=== PATIENT | male | born 1985 | race Caucasian/White ===

== ENCOUNTER → 2017-04-10 | Outpatient (CLI) | payer BC ==
[~2017-04-10] MED LIST: AMOX875T PO; HYDR-5688 PO; TAMS0.4C38 PO
[2017-04-10 11:14] LABS: URINE APPEARANCE CLEAR (CLEAR); URINE BILIRUBIN NEG (NEG); URINE COLOR YELLOW; URINE NITRITE NEG (NEG); URINE PH 6.5 (4.5-7.5); URINE SPECIFIC GRAVITY 1.021 (1.000-1.030); UROBILINOGEN NEG (NEG)
[2017-04-10 11:15] LABS: CARBON DIOXIDE 31 mmol/L (21-32)
[2017-04-10 11:18] LABS: MANUAL MICROSCOPIC REQUIRED? NO; REVIEW REQ? NO
[2017-04-10 11:20] LABS: ALT/SGPT 23 U/L (12-78); BLOOD UREA NITROGEN 16 mg/dl (7-18); BUN/CREATININE RATIO 17.8 (10-20); CALCIUM 9.3 mg/dl (8.5-10.1); CHLORIDE 105 mmol/L (98-107); CHOLESTEROL 202 mg/dl (0-200); CREATININE 0.89 mg/dl (0.60-1.40); GLUCOSE 90 mg/dl (70-99); POTASSIUM 3.8 mmol/L (3.5-5.1); SODIUM 139 mmol/L (136-145); TRIGLYCERIDES 78 mg/dl (0-150); VERY LOW DENSITY LIPOPROT CALC 16 mg/dl
[2017-04-10 11:24] LABS: ALB/GLOB RATIO 1.1 (0.9-2); ALKALINE PHOSPHATASE 50 U/L (45-117); AST/SGOT 17 U/L (15-37); CHOLESTEROL/HDL RATIO 3.5; HDL CHOLESTEROL 57 mg/dl; LDL CHOLESTEROL CALCULATED 129 mg/dl; PROSTATE SPECIFIC ANTIGEN 0.141 ng/ml (0.000-4.000)
[2017-04-10 11:26] LABS: ESTIMATED AVERAGE GLUCOSE 111 mg/dl; HA1C FLAG Normal (Normal)
== END | disposition home or self-care (01) ==
LOC: C.LABBC 08:27
PROVIDERS: ATTEND Internal Medicine
DX: Z00.00 Encounter for general adult medical examination without abnormal findings (principal); R35.0 Frequency of micturition

== ENCOUNTER 2017-05-21 18:20 | Emergency (ER) | payer BC ==
[~2017-05-21] VITALS: Ht 172.7 cm; Wt 70.7 kg
[2017-05-21 18:25] VITALS: TEMP 36.6; Ht 172.7 cm; Wt 70.7 kg
[2017-05-21] MEDS ORDERED: XYLOCAINE 1%/SOD BICARB 20 ML VIAL INFIL ONE (19:45)
[2017-05-21] MEDS ORDERED: DIPHTHERIA/TETANUS/PERTUSSIS 0.5 ML SYR/VIAL IM. ONE (19:45)
--- NOTE | 2017-05-21 20:05 | DIAGNOSTIC IMAGING REPORT ---
LEFT HAND MIN 3 VIEWS ROUTINE CLINICAL HISTORY: Dog bite to little finger COMPARISON: None FINDINGS: There is a lucency within the medial base of the distal phalanx of the left fifth finger which could reflect an acute nondisplaced fracture. There is suspected soft tissue gas within the left fifth finger. No additional fractures are identified. Carpal bones are intact. IMPRESSION: 1. Suspected nondisplaced acute fracture within the medial base of the distal phalanx of left fifth finger. 2. Probable soft tissue gas with the left fifth finger suggestive of puncture wound. Electronically signed by: Rosalino Gonzales M.D. 05/21/2017 8:04 PM Dictated Date/Time: 05/21/2017 8:00 PM
[2017-05-21] MEDS ORDERED: CEFAZOLIN IV 1,000 MG in DEXTROSE 5% 50ML 50 ML IV ONE (20:15)
[2017-05-21] MEDS ORDERED: TAMS0.4C38 PO (20:18)
[2017-05-21] MEDS ORDERED: NORCO 5/325MG HOME PACK PO ONE (22:15)
[2017-05-21] MEDS ORDERED: AMOXICIL/CLAVU 875MG HOME PACK PO ONE (22:15)
[2017-05-21] MEDS ORDERED: AMOX875T PO (22:18)
[2017-05-21] MEDS ORDERED: HYDR-5688 PO (22:18)
[2017-05-21 22:33] VITALS: BP 112/66; PULSE 65; O2SAT 97
--- NOTE | 2017-05-22 01:43 | EMERGENCY ROOM VISIT NOTE ---
ED Visit Note First contact with patient: 19:34 Chief Complaint: My dog bit my left little finger. History of Present Illness: Mr. Brito is a 31-year-old white male who ambulates into the ED complaining of a dog bite to the left little finger. Patient reports approximate 45 minutes before he arrived in the emergency department he was attempting to take a toy out of his dog's mouth and his dog bit his left finger over the fingernail and distal phalanxes. He reports since that time he has been having pain in the area of the dog bite. He did not wash the wound or control bleeding prior to arrival at the hospital. Currently patient is complaining of a throbbing pain over the distal phalanxes of the left little finger. He rates his discomfort 3/10. The pain is nonradiating. The pain worsens with palpation. He has not identified any alleviating factors related to the pain. He has not taken any medications for pain prior to arrival at the hospital. He denies any associated symptoms with his pain. He does report his family dog's immunizations are up-to-date. Review of Systems: As noted above in history of present illness. Past Medical History: Patient denies. Current Medications: Flomax. Allergies to Medications: Patient denies. Social History: Patient is currently employed; he lives with his family and feels safe in his home environment; he denies tobacco use. Tetanus Immunization Status: Patient was unsure but felt it was greater than 10 years. Physical Examination: Vital Signs: Date Time Temp Pulse Resp B/P (MAP) Pulse Ox O2 Delivery O2 Flow Rate FiO2 05/21/17 22:33 65 18 112/66 97 05/21/17 18:25 36.6 76 18 126/65 98 Room Air GENERAL: 31-year-old female in mild distress due to pain, nontoxic-appearing, afebrile and hemodynamically stable. NEUROLOGICAL: Awake, alert and oriented to person, place and time. Answering questions appropriately and following commands. SKIN: Warm, dry and pink. LEFT LITTLE FINGER: No gross bony deformity. Tenderness over the DIP and distal phalanx. No bony deformity or crepitus. No swelling in this area. Subcentimeter laceration extending from the the lateral nail fold anteriorly with active bleeding. Small, scant subungual hematoma just superior to the lunula. Additional the lateral proximal nail was sitting up above the cuticle. I did not appreciate any damage to the nail bed. The lateral portion of the nail showed a small splintering of the nail. Full range of motion in flexion and extension of the DIP joint. Capillary refill is brisk. He was able to distinguish light sensations. ED Course: Patient is assessed as noted above. Patient's medication list was reviewed. Patient was offered pain medications and refused. Left Hand X-Rays: Were read by myself and the radiologist and shows a suspected nondisplaced acute fracture within the medial base of the distal phalanx of the little finger. Radiologist also notes probable soft tissue gas within the left little finger suggested of a puncture wound. Wound Repair: Complexity: Basic: Verbal consent was obtained after the risks and benefits were explained. A digital block was performed with 1% buffer lidocaine; approximately 3.8 mL The skin was prepped with betadine and a sterile field set. The wound was explored for foreign bodies and none found. Copious irrigation was performed using sterile saline. Using the iris scissors I was able to cut a small piece of the proximal nail off from where was extruded above the cuticle and I was then able to replace the nail under the cuticle. The wound edges were approximated using tarry strips. Hemostasis and excellent approximation was achieved. Patient's finger was then placed in a metal finger splint. No complications and the patient tolerated the procedure well. Patient received an Adacel booster. An IV lock was initiated ankle because of the potential for a possible open fracture patient received 1 g of Ancef IV. Patient was educated about tonight's findings and instructed on his treatment plan; he verbalizes understanding and agreement with this plan. Clinical Impression: Open fracture of the distal phalanx of the left little finger. Dog bite injury. Fingernail injury. Disposition: Patient discharged home in stable condition; prior to departure he was reassessed and subjectively reported he was pain-free. Plan: Comfort measures, wound care, and signs of infection were discussed with the patient. Patient was prescribed Augmentin 875 mg 2 times a day for 10 days from biotic prophylaxis. Patient was placed on a sliding pain scale of ibuprofen, acetaminophen and [place] ; he was given appropriate precautions with narcotic use and his name was checked on state database and no red flags were noted. Patient was encouraged to follow-up with orthopedic hand specialist for definitive care and treatment. Patient was encouraged return ED for worsening/uncontrolled pain, signs of infection, finger weakness/numbness/tingling or any new/concerning symptoms.
== END 2017-05-21 22:34 | disposition home or self-care (01) ==
LOC: C.EDB 18:23 → C.EDD 22:34
DX: S62.667B Nondisplaced fracture of distal phalanx of left little finger, initial encounter for open fracture (principal); S61.357A Open bite of left little finger with damage to nail, initial encounter; W54.0XXA Bitten by dog, initial encounter; Z79.899 Other long term (current) drug therapy; Z23 Encounter for immunization

== ENCOUNTER → 2017-05-27 | Outpatient (CLI) | payer BC | END | disposition home or self-care (01) | LOC: C.LABSPEC 10:33 | PROVIDERS: ATTEND Nurse Practitioner Family | DX: R39.12 Poor urinary stream (principal) ==

== ENCOUNTER → 2017-07-07 | Outpatient (CLI) | payer BC ==
[~2017-07-07] MED LIST changes: -AMOX875T PO
== END | disposition home or self-care (01) ==
LOC: C.LABSPEC 17:23
PROVIDERS: ATTEND Nurse Practitioner Adult Health
DX: R35.0 Frequency of micturition (principal)

== ENCOUNTER → 2017-07-19 | Outpatient (CLI) | payer BC ==
[~2017-07-19] MED LIST changes: +GADAVIST IV PRN
--- NOTE | 2017-07-19 10:48 | DIAGNOSTIC IMAGING REPORT ---
MRI OF THE LUMBAR SPINE WITH AND WITHOUT CONTRAST CLINICAL HISTORY: Urinary retention. Conus medullaris syndrome. COMPARISON STUDY: No previous studies for comparison. TECHNIQUE: Utilizing a 1.5 Victorina magnet and dedicated coil, multiplanar, multiecho imaging of the lumbar spine was performed before and after uneventful IV administration of 6 mL of Gadavist. FINDINGS: For purposes of numbering on this exam, the L5-S1 disc space is assigned to axial image 23 of 25. Alignment of the lumbar spine is anatomic. Vertebral body heights are maintained. Conus terminates at the mid L1 level. There is no intracanalicular mass or fluid collection. The urinary bladder is moderately distended. Bladder wall irregularity may reflect trabeculation. Paravertebral soft tissues are unremarkable. L1-2: The central canal and neural foramen are patent. L2-3: The central canal and neural foramen are patent. L3-4: The central canal and neural from are patent. L4-5: The central canal and neural foramen are patent. L5-S1: There is mild disc bulge tiny central disc protrusion. There is no significant central canal, lateral recess or neural foraminal narrowing. IMPRESSION: 1. No significant central canal or neural foraminal narrowing. 2. Mild disc bulge with tiny central disc protrusion at L5-S1. Otherwise, normal MRI of the lumbar spine. 3. Moderately distended bladder with bladder wall irregularity which suggests trabeculation. Electronically signed by: Rosalino Gonzales M.D. 07/19/2017 10:46 AM Dictated Date/Time: 07/19/2017 10:40 AM
--- NOTE | 2017-07-19 11:02 | DIAGNOSTIC IMAGING REPORT ---
MRI OF THE THORACIC SPINE COMBO CLINICAL HISTORY: Urinary retention. Conus medullaris syndrome. COMPARISON STUDY: No priors. TECHNIQUE: MRI of the thoracic spine is performed utilizing various T1 and T2-weighted sequences in the axial and sagittal planes. Contrast-enhanced sequences were acquired following the IV administration of 6 cc of Gadavist. FINDINGS: Vertebral body height and alignment are maintained throughout the thoracic spine. Normal marrow signal intensity is preserved of the visualized bony structures. Tiny hemangiomas are seen in the bodies of T10 and T11. No destructive bony lesion is seen. The spinous processes appear intact. The intervertebral discs are normal in height and signal intensity. No disc herniation or central canal compromise is seen. No significant neural foraminal stenosis is seen. The spinal cord is normal in morphology and signal intensity. No abnormal enhancement is seen on the postcontrast images. The conus medullaris terminates at the level of L1. The paraspinous soft tissues are normal in appearance. The visualized lung parenchyma is grossly unremarkable but not well evaluated by MRI. IMPRESSION: 1. There is no disc herniation, central canal stenosis, or neural foraminal narrowing seen throughout the thoracic spine. 2. The thoracic spinal cord is normal in morphology and signal intensity. No abnormal enhancement is seen on the postcontrast images. Dictated: 07/19/2017 10:35 AM Transcribed: 07/19/2017 11:02 AM Shl[facility] Electronically signed by: Shola Barrett M.D. 07/19/2017 11:11 AM Dictated Date/Time: 07/19/2017 10:35 AM
== END | disposition home or self-care (01) ==
LOC: C.MRIBC 07:46
PROVIDERS: ATTEND Psychiatry & Neurology Neurology
DX: G95.81 Conus medullaris syndrome (principal); R33.9 Retention of urine, unspecified; R93.41 Abnormal radiologic findings on diagnostic imaging of renal pelvis, ureter, or bladder

== ENCOUNTER → 2017-10-01 | Outpatient (CLI) | payer BC ==
[~2017-10-01] MED LIST changes: -GADAVIST IV PRN
== END | disposition home or self-care (01) ==
LOC: C.LABBC 12:59
PROVIDERS: ATTEND Nurse Practitioner Adult Health
DX: N39.0 Urinary tract infection, site not specified (principal)

== ENCOUNTER → 2017-12-14 | Outpatient (CLI) | payer OTHER ==
[~2017-12-14] MED LIST changes: -HYDR-5688 PO
== END | disposition home or self-care (01) ==
LOC: C.LABBC 12:25
PROVIDERS: ATTEND Urology
DX: N39.0 Urinary tract infection, site not specified (principal)

== ENCOUNTER → 2018-04-27 | Outpatient (CLI) | payer OTHER | END | disposition home or self-care (01) | LOC: C.LAB1850 15:41 | PROVIDERS: ATTEND Internal Medicine | DX: N39.0 Urinary tract infection, site not specified (principal) ==

== ENCOUNTER → 2018-04-29 | Outpatient (CLI) | payer OTHER ==
[2018-04-29 13:33] LABS: BASO % 0.6 %; BASO ABS # 0.03 K/uL (0-0.2); EOS % 1.2 %; EOS ABS # 0.06 K/uL (0-0.5); HEMATOCRIT 43.5 % (42-52); HEMOGLOBIN 15.2 g/dL (14.0-18.0); LYMPH % 40.4 %; MEAN CELL VOLUME 89.5 fL (80-100); MEAN CORPUSCULAR HEMOGLOBIN 31.3 pg (25-34); MEAN CORPUSCULAR HGB CONC 34.9 g/dl (32-36); MEAN PLATELET VOLUME 10.3 fL (7.4-10.4); MONO % 12.3 %; MONO ABS # 0.61 K/uL (0.11-0.59); NEUT % 45.5 %; NEUT ABS # 2.25 K/uL (1.4-6.5); PLATELET COUNT 259 K/uL (130-400); RED CELL DISTRIBUTION WIDTH CV 12.3 % (11.5-14.5); RED CELL DISTRIBUTION WIDTH SD 40.1 fL (36.4-46.3); WHITE BLOOD COUNT 4.95 K/uL (4.8-10.8)
[2018-04-29 13:39] LABS: PTT PATIENT 30.3 SECONDS (21.0-31.0)
[2018-04-29 13:55] LABS: ALKALINE PHOSPHATASE 59 U/L (45-117); ALT/SGPT 20 U/L (12-78); AST/SGOT 16 U/L (15-37); BLOOD UREA NITROGEN 19 mg/dl (7-18); CALCIUM 8.6 mg/dl (8.5-10.1); CARBON DIOXIDE 28 mmol/L (21-32); CREATININE 1.04 mg/dl (0.60-1.40); GLUCOSE 83 mg/dl (70-99); SODIUM 139 mmol/L (136-145); TOTAL PROTEIN 7.6 gm/dl (6.4-8.2)
== END | disposition home or self-care (01) ==
LOC: C.LABBC 09:40
PROVIDERS: ATTEND Urology
DX: R33.9 Retention of urine, unspecified (principal)

== ENCOUNTER 2022-07-09 09:53 | Inpatient (IN) ==
[2022-07-09] MEDS ORDERED: SODIUM CHLORIDE 0.9% 1000ML 1,000 ML IV ONE (11:11)
[2022-07-09] MEDS ORDERED: diphenhydrAMINE 50 MG/ML VIAL IV STA (11:11)
[2022-07-09] MEDS ORDERED: METOCLOPRAMIDE HCL INJ 5 MG/ML 2 ML VIAL IV ONE (11:11)
--- NOTE | 2022-07-09 11:33 | Emergency Department Note ---
History of Present Illness General Chief Complaint: Headache Stated Complaint: SENT BY - SEVERE HEADACHES Time Seen by Provider: 07/09/22 11:00 History of Present Illness Provider complaint: + "migraine" Onset (ago): day(s) (12) Onset description: + gradual and + at rest Location: + diffuse Severity: moderate Maximum Pain Intensity: 7 Current Pain Intensity: 7 Quality: + throbbing and + dull Relieved By: + other (transiently better with cortez cocktails in ED) Exacerbated By: + none Context: + occurred at rest; no occurred while eating, no recent head injury, no known CO exposure or no recent spinal/epidural procedure Associated symptoms: no fever, no nausea, no vomiting, no neck stiffness, no photophobia, no sensitivity to sound, no rash, no seizure, no eye pain, no eye redness, no syncope, no vision loss, no tingling, no numbness, no confusion, no chest pain, no cough or no shortness of breath Home Medications Medication Instructions Recorded Confirmed Type prednisone 20 mg tablet 20 mg PO DIRECTED 06/28/22 07/09/22 History jipbfljyxz-qhfioafqtxvrx-[id number] 1 cap PO Q6H PRN pain #30 caps 07/02/22 07/09/22 Rx 50 mg-300 mg-40 mg capsule (Fioricet) cyclobenzaprine 10 mg tablet 10 mg PO HS 07/02/22 07/09/22 History diclofenac sodium 75 mg 75 mg PO BID 07/02/22 07/09/22 History tablet,delayed release guaifenesin 1,200 mg tablet, 1,200 mg PO BID 07/02/22 07/09/22 History extended release 12 hr (Mucinex) Allergies Allergy/AdvReac Type Severity Reaction Status Date / Time No Known Allergies Allergy Unverified 07/09/22 08:57 Past Med/Surg History Medical History Migraine headache Urinary retention Surgical History History of implanted electronic device URINARY DEVICE DUE TO URINARY RETENTION/WAS REMOVED DUE TO NOT HELPING THE ISSUE Family History Mother Breast cancer Hypertension Cataracts, bilateral Father Hypertension Urinary retention Social History Smoking Status: Never smoker Second Hand Exposure: No; Hx Alcohol Use: Yes Alcohol type: beer, wine and hard liquor Alcohol Intake Frequency: 4 or More x per/Week Hx Substance Use: No Preferred Language: Uzbek Communication Ability: Effective Visual Impairment: Limited Hearing Ability: Normal Hand Cigar Maker Required: No marital status: Current Living Situation: Spouse current occupational status: employed Feels Safe at Home: Yes Childhood Exposure to Second-Hand Smoke: No caffeine: Yes Dental Care, Regularly: Yes Physical Activity Frequency: Does not Exercise Seatbelt Use: always Sunscreen Use: Yes Do you think of yourself as: straight/heterosexual Review of Systems A total of 10 systems reviewed and were otherwise negative Physical Exam Vital Signs Vital Signs - 24 hr 07/09/22 10:27 07/09/22 11:44 07/09/22 17:00 Temperature 36.8 C Temperature Source Temporal Artery Scan Pulse Rate 107 H Pulse Rate [Finger] 91 H 84 Pulse Rhythm [Finger] Regular Respiratory Rate 18 20 18 Respiratory Effort / Characteristics Non-Labored Spontaneous Non-Labored Respiratory Depth Normal Normal Normal Respiratory Pattern Regular Blood Pressure 116/80 Blood Pressure [Right Arm] 105/66 118/64 Blood Pressure Mean 92 Blood Pressure Mean [Right Arm] 79 82 Pulse Oximetry 98 99 98 Oxygen Delivery Method Room Air Sepsis Recent Fever Within 48 Hours No Sepsis New/Unexplained Change in Mental Status N/A Sepsis Action Taken by Nursing No Action Required Physical Exam GENERAL: He is oriented to person, place, and time. He appears well-developed and well-nourished. He does not appear distressed. HENT: Exam performed. - Head: Normocephalic and atraumatic. - Right Ear: External ear normal. No mastoid tenderness. - Left Ear: External ear normal. No mastoid tenderness. - Mouth/Throat: The oropharynx is clear and moist. No trismus in the jaw. No dental abscesses or uvula swelling. No oropharyngeal exudate or tonsillar abscesses. EYES: Conjunctivae and EOM are normal. Pupils are equal, round, and reactive to light. Right eye exhibits no discharge. Left eye exhibits no discharge. No scleral icterus. NECK: Normal range of motion. Neck supple. No JVD present. No spinous process tenderness present. No carotid bruit present. No rigidity. No tracheal deviation and normal range of motion present. No Brudzinski's sign and no Kernig's sign noted. CV: Normal rate, regular rhythm, normal heart sounds and intact distal pulses. There is no peripheral edema. Palpable radial pulses bue. PULM/CHEST: Effort normal and breath sounds normal. No respiratory distress. No stridor. He has no wheezes. He has no rales. - Chest Wall: He exhibits no tenderness. ABD: The abdomen is soft. Bowel sounds are normal. He has no distension. No mass is present. There is no tenderness. There is no rebound, no guarding, no Blair's sign and no tenderness at McBurney's point. Rovsig negative. MUSC/SKEL: Normal range of motion. There is no peripheral edema, tenderness or deformity. LYMPH: No cervical adenopathy. NEURO: He is alert and oriented to person, place, and time. He has normal strength. No cranial nerve deficit or sensory deficit. Coordination and gait normal. GCS eye subscore is 4. GCS verbal subscore is 5. GCS motor subscore is 6. Cerebellar tests wnl. SKIN: Skin is warm and dry. He is not diaphoretic. PSYCH: He has a normal mood and affect. Behavior is normal. Judgment and thought content normal. Procedures Lumbar Puncture Time Out Performed: Yes Patient Position: left lateral decubitus Skin Prep: Povidone-Iodine 1% Local Anesthetic: lidocaine 1% and with epi Amount of anesthesia used (mL): 5 Spinal Needle Gauge: 20G Interspace Used: L3-L4 Complications: unable to obtain CSF and traumatic tap Additional Comments: 2-3 small drops of CSF were obtained however they came out very slow and eventually stopped coming out. Multiple other attempts were made however they were unsuccessful. Course Course 1100: The patient was evaluated in room C7. A complete history and physical exam was performed Cardiac monitoring: An order was placed for continuous cardiac monitoring. The monitor shows a rate of 100 with sinus rhythm EMR reviewed. This patient's third visit to the emergency department in the last 11 days.Patient had blood work done on July 02 which was negative. Lyme screen negative on that date also. Patient had a CT of the head done which was negative.Patient was seen in the emergency department today by Dr. Jacinto neurology. He was referred to the emergency department today. The patient states he was sent here for an MRI from his "head to toe". I stated I would speak with Dr. Jacinto about this prior to ordering any MRIs. 1112: Spoke with Dr. Jacinto neurologist who referred the patient to the emergency department. He states that the patient has been having headaches for the last 12 days which are unexplained. He did state that he wanted to get MRIs of his head and thoracic and lumbar spine. He stated he was concerned that the patient could have a low pressure CSF leak. There is been no LP or recent trauma. We had a long discussion about which MRIs should be done emergently in the emergency department today. After long discussion with Dr. Jacinto, it was decided that we would order MRI of the brain with and without contrast, MRA of the brain, MRV of the brain in the emergency department as well as conduct labs. If these MRIs of the head were negative we would have the patient admitted to the hospital for further diagnostic MRI testing. Dr. Jacinto is also asking that the patient be evaluated by anesthesia for possible blood patch however given that the patient has not had any recent LP I doubt that anesthesia would conduct a blood patch on the patient emergently and thought that this would be better done on the inpatient setting after evaluation and further testing. The primary goal today in the emergency department would be to rule out any life-threatening intracranial emergency. I did discuss this with the patient and his who are at bedside and they are in agreement. 1554: Vital signs stable. Labs within normal limits. 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 Nonemergent neurosurgical consultation was recommended. MRI of the brain showed mild diffuse pachymeningeal enhancement seen throughout the brain. This can be seen in the setting of an infectious/inflammatory process or possibly intracranial hypotension. I discussed these findings with Dr. Jacinto and both he and I agree that we need to rule out meningitis. LP will be performed. I attempted lumbar puncture. 2-3 small drops of CSF were obtained however they came out very slow and eventually stopped coming out. Multiple other attempts were made however they were unsuccessful. I discussed the case with Dr. Gonzales radiology and requested that he attempt to do the procedure under fluoroscopy. Dr. Gonzales graciously said he would try to do the procedure. There is also concern that if the patient truly has intracranial hypotension that that could be the reason why not enough CSF was coming out. 190: Vital signs stable. CSF is not concerning for meningitis as the patient's CSF bio fire was negative glucose was 54. The lumbar puncture was a traumatic tap given multiple attempts by me followed by attempts by radiology under fluoroscopy. We will proceed with the plan to obtain MRIs of his spine Dr. Penaloza is aware of this plan and states he will keep neurology on consult while the patient is admitted to the hospital. Administered Medications Discontinued Medications Diphenhydramine HCl (Diphenhydramine 50 Mg/Ml Vial) 25 mg IV NOW STA Stop: 07/09/22 11:12 Last Admin: 07/09/22 11:28 Dose: 25 mg Documented By: MARTIN Gadobutrol (Gadobutrol 65ml Vial) 6 ml IV ONCE ONE Stop: 07/09/22 13:29 Last Admin: 07/09/22 13:28 Dose: 6 ml Documented By: CRISS Sodium Chloride (Nss 1000ml) 1,000 mls @ 999 mls/hr IV .Q1H1M ONE Stop: 07/09/22 12:11 Last Infusion: 07/09/22 13:53 Dose: 0 mls/hr Documented By: Admin: 07/09/22 11:26 Dose: 999 mls/hr Documented By: MARTIN Lidocaine/Epinephrine (Lido/Epinephrine/Sod Bicarb 20 Ml Vial) 20 ml INFIL NOW ONE Stop: 07/09/22 15:00 Last Admin: 07/09/22 15: Dose: 20 ml Documented By: MARTIN Lorazepam (Lorazepam 2 Mg/2 Ml Syr) 1 mg IV NOW STA; Protocol Stop: 07/09/22 15:00 Last Admin: 07/09/22 15:27 Dose: 1 mg Documented By: MARTIN Metoclopramide HCl (Metoclopramide Hcl Inj 5 Mg/Ml 2 Ml Vial) 5 mg IV ONE ONE Stop: 07/09/22 11:12 Last Admin: 07/09/22 11:29 Dose: 5 mg Documented By: MARTIN Morphine Sulfate (Morphine Sulfate 4 Mg/Ml 1 Ml Carp\\Vial) 4 mg IV NOW STA Stop: 07/09/22 15:00 Last Admin: 07/09/22 15:28 Dose: 4 mg Documented By: MARTIN Ondansetron HCl (Ondansetron Inj 2 Mg/Ml 2 Ml Vial) 4 mg IV NOW STA Stop: 07/09/22 15:00 Last Admin: 07/09/22 15:28 Dose: 4 mg Documented By: MARTIN Medical Decision Making Laboratory Data Result diagrams: 07/09/22 11:34 07/09/22 11:34 Lab Results 07/09/22 07/09/22 07/09/22 Range/Units 11:34 11:34 11:34 WBC 10.47 (4.8-10.8) K/ul RBC 5.37 (4.63-6.08) M/uL Hgb 16.8 (14.0-18.0) g/dl Hct 47.7 (40.1-51.0) % MCV 88.8 (80.0-100.0) fL MCH 31.3 (25.0-34.0) pg MCHC 35.2 (32.0-36.0) g/dL RDW Std Deviation 38.3 (36.4-46.3) fL RDW Coeff of Aurelia 11.9 (11.5-14.5) % Plt Count 261 (130-400) K/uL MPV 9.9 (9.4-12.4) fL Immature Gran % (Auto) 0.3 % Neut % (Auto) 84.0 % Lymph % (Auto) 10.0 % Chambers % (Auto) 5.3 % Eos % (Auto) 0.0 % Baso % (Auto) 0.4 % Neut # (Auto) 8.80 H (1.4-6.5) K/uL Lymph # (Auto) 1.05 L (1.2-3.4) K/uL Chambers # (Auto) 0.55 (0.24-0.82) K/uL Eos # (Auto) 0.00 (0-0.50) K/uL Baso # (Auto) 0.04 (0-0.2) K/uL Immature Gran # (Auto) 0.03 H (0.00-0.02) K/uL PT 11.9 (9.0-12.0) Seconds INR 1.1 (0.9-1.1) APTT 28.4 (21.0-31.0) Seconds PTT Ratio 1.0 Sodium 136 (136-145) mmol/L Potassium 4.3 (3.5-5.1) mmol/L Chloride 99 (98-107) mmol/L Carbon Dioxide 24 (21-32) mmol/L Anion Gap 13 H (3-11) BUN 23 (6-23) mg/dl Creatinine 0.93 (0.6-1.4) mg/dl Est Cr Clr Drug Dosing 93.7 ml/min Est GFR ( Amer) 119.4 ml/min Est GFR (Non-Af Amer) 103.0 ml/min BUN/Creatinine Ratio 24.7 H (10-20) Glucose 86 (70-99(Fasting)) mg/dl Calcium 10.2 H (8.5-10.1) mg/dl Total Bilirubin 0.8 (0.2-1.0) mg/dl AST 11 L (13-39) U/L ALT 11 (7-52) U/L Alkaline Phosphatase 54 (34-104) U/L Total Protein 8.5 H (6.0-8.3) gm/dl Albumin 4.9 (3.4-5.0) gm/dl Globulin 3.6 (2.5-4.0) gm/dl Albumin/Globulin Ratio 1.4 (0.9-2) Fluid Comment CSF Appearance CSF Color Xanthrochromic CSF WBC (0-5) /uL CSF RBC (0-) /uL CSF Cell Count Tube # CSF Mononuclear WBCs % % CSF Polynuclear WBCs % % CSF Chemistry Tube # CSF Glucose (40-70) mg/dl CSF Total Protein (15-45) mg/dl CSF C.neoform/gat PCR (NotDetected) CSF CMV DNA (PCR) (NotDetected) CSF Enterovirus (PCR) (NotDetected) CSF E. coli K1 (PCR) (NotDetected) CSF H. influenzae (PCR) (NotDetected) CSF HSV I (PCR) (NotDetected) CSF HSV II (PCR) (NotDetected) CSF HHV 6 (PCR) (NotDetected) CSF L.monocytogenes PCR (NotDetected) CSF N. meningitidis PCR (NotDetected) CSF Parechovirus (PCR) (NotDetected) CSF S. agalactiae (PCR) (NotDetected) CSF S. pneumoniae (PCR) (NotDetected) CSF VZV DNA (PCR) (NotDetected) SARS-CoV-2, RNA, NAAT (NEGATIVE) 09/29/22 09/29/22 09/29/22 Range/Units 17:00 17:00 17:00 WBC (4.8-10.8) K/ul RBC (4.63-6.08) M/uL Hgb (14.0-18.0) g/dl Hct (40.1-51.0) % MCV (80.0-100.0) fL MCH (25.0-34.0) pg MCHC (32.0-36.0) g/dL RDW Std Deviation (36.4-46.3) fL RDW Coeff of Aurelia (11.5-14.5) % Plt Count (130-400) K/uL MPV (9.4-12.4) fL Immature Gran % (Auto) % Neut % (Auto) % Lymph % (Auto) % Chambers % (Auto) % Eos % (Auto) % Baso % (Auto) % Neut # (Auto) (1.4-6.5) K/uL Lymph # (Auto) (1.2-3.4) K/uL Chambers # (Auto) (0.24-0.82) K/uL Eos # (Auto) (0-0.50) K/uL Baso # (Auto) (0-0.2) K/uL Immature Gran # (Auto) (0.00-0.02) K/uL PT (9.0-12.0) Seconds INR (0.9-1.1) APTT (21.0-31.0) Seconds PTT Ratio Sodium (136-145) mmol/L Potassium (3.5-5.1) mmol/L Chloride (98-107) mmol/L Carbon Dioxide (21-32) mmol/L Anion Gap (3-11) BUN (6-23) mg/dl Creatinine (0.6-1.4) mg/dl Est Cr Clr Drug Dosing ml/min Est GFR ( Amer) ml/min Est GFR (Non-Af Amer) ml/min BUN/Creatinine Ratio (10-20) Glucose (70-99(Fasting)) mg/dl Calcium (8.5-10.1) mg/dl Total Bilirubin (0.2-1.0) mg/dl AST (13-39) U/L ALT (7-52) U/L Alkaline Phosphatase (34-104) U/L Total Protein (6.0-8.3) gm/dl Albumin (3.4-5.0) gm/dl Globulin (2.5-4.0) gm/dl Albumin/Globulin Ratio (0.9-2) Fluid Comment CSF Appearance Bloody CSF Color [place] Xanthrochromic No xanthochromia CSF WBC 16 H* (0-5) /uL CSF RBC 6000 (0-) /uL CSF Cell Count Tube # 3 CSF Mononuclear WBCs % 87.6 % CSF Polynuclear WBCs % 12.4 % CSF Chemistry Tube # 1 CSF Glucose 54 (40-70) mg/dl CSF Total Protein 127.6 H (15-45) mg/dl CSF C.neoform/gat PCR Not Detected (NotDetected) CSF CMV DNA (PCR) Not Detected (NotDetected) CSF Enterovirus (PCR) Not Detected (NotDetected) CSF E. coli K1 (PCR) Not Detected (NotDetected) CSF H. influenzae (PCR) Not Detected (NotDetected) CSF HSV I (PCR) Not Detected (NotDetected) CSF HSV II (PCR) Not Detected (NotDetected) CSF HHV 6 (PCR) Not Detected (NotDetected) CSF L.monocytogenes PCR Not Detected (NotDetected) CSF N. meningitidis PCR Not Detected (NotDetected) CSF Parechovirus (PCR) Not Detected (NotDetected) CSF S. agalactiae (PCR) Not Detected (NotDetected) CSF S. pneumoniae (PCR) Not Detected (NotDetected) CSF VZV DNA (PCR) Not Detected (NotDetected) SARS-CoV-2, RNA, NAAT (NEGATIVE) 07/09/22 Range/Units 18:46 WBC (4.8-10.8) K/ul RBC (4.63-6.08) M/uL Hgb (14.0-18.0) g/dl Hct (40.1-51.0) % MCV (80.0-100.0) fL MCH (25.0-34.0) pg MCHC (32.0-36.0) g/dL RDW Std Deviation (36.4-46.3) fL RDW Coeff of Aurelia (11.5-14.5) % Plt Count (130-400) K/uL MPV (9.4-12.4) fL Immature Gran % (Auto) % Neut % (Auto) % Lymph % (Auto) % Chambers % (Auto) % Eos % (Auto) % Baso % (Auto) % Neut # (Auto) (1.4-6.5) K/uL Lymph # (Auto) (1.2-3.4) K/uL Chambers # (Auto) (0.24-0.82) K/uL Eos # (Auto) (0-0.50) K/uL Baso # (Auto) (0-0.2) K/uL Immature Gran # (Auto) (0.00-0.02) K/uL PT (9.0-12.0) Seconds INR (0.9-1.1) APTT (21.0-31.0) Seconds PTT Ratio Sodium (136-145) mmol/L Potassium (3.5-5.1) mmol/L Chloride (98-107) mmol/L Carbon Dioxide (21-32) mmol/L Anion Gap (3-11) BUN (6-23) mg/dl Creatinine (0.6-1.4) mg/dl Est Cr Clr Drug Dosing ml/min Est GFR ( Amer) ml/min Est GFR (Non-Af Amer) ml/min BUN/Creatinine Ratio (10-20) Glucose (70-99(Fasting)) mg/dl Calcium (8.5-10.1) mg/dl Total Bilirubin (0.2-1.0) mg/dl AST (13-39) U/L ALT (7-52) U/L Alkaline Phosphatase (34-104) U/L Total Protein (6.0-8.3) gm/dl Albumin (3.4-5.0) gm/dl Globulin (2.5-4.0) gm/dl Albumin/Globulin Ratio (0.9-2) Fluid Comment CSF Appearance CSF Color Xanthrochromic CSF WBC (0-5) /uL CSF RBC (0-) /uL CSF Cell Count Tube # CSF Mononuclear WBCs % % CSF Polynuclear WBCs % % CSF Chemistry Tube # CSF Glucose (40-70) mg/dl CSF Total Protein (15-45) mg/dl CSF C.neoform/gat PCR (NotDetected) CSF CMV DNA (PCR) (NotDetected) CSF Enterovirus (PCR) (NotDetected) CSF E. coli K1 (PCR) (NotDetected) CSF H. influenzae (PCR) (NotDetected) CSF HSV I (PCR) (NotDetected) CSF HSV II (PCR) (NotDetected) CSF HHV 6 (PCR) (NotDetected) CSF L.monocytogenes PCR (NotDetected) CSF N. meningitidis PCR (NotDetected) CSF Parechovirus (PCR) (NotDetected) CSF S. agalactiae (PCR) (NotDetected) CSF S. pneumoniae (PCR) (NotDetected) CSF VZV DNA (PCR) (NotDetected) SARS-CoV-2, RNA, NAAT NEGATIVE (NEGATIVE) Imaging Data Radiologist's Impression: Brain MRI 07/09/22 11:16 Brain MRI WITH AND WITHOUT CONTRAST HISTORY: Headache. TECHNIQUE: Multiplanar multisequence MRI of the brain was performed both before and after the intravenous administration of contrast. COMPARISON STUDY: Brain MRI 08/10/2017. FINDINGS: There are no areas of restricted diffusion to suggest acute infarction. The midline structures are intact. The paranasal sinuses are clear. The mastoid air cells are clear. The ventricles and sulci are within normal limits for age. There is no mass, hematoma, midline shift. The major vascular flow-voids at the skull base are well maintained. No intracranial mass identif ied. There is mild diffuse pachymeningeal enhancement. There are 2 punctate foci of T2 hyperintensity seen within the paratracheal white matter of the left parietal lobe on coronal FLAIR image 18. These remain unchanged and are of doubtful clinical significance. IMPRESSION: 1. Mild diffuse pachymeningeal enhancement seen throughout the brain. This can be seen in the setting of an infectious/inflammatory process or possibly intracranial hypotension. 2. No acute infarct. ACT 112: Negative or not required by law. Electronically signed by: Pravene Joseph M.D. 07/09/2022 2:07 PM Head MRA 07/09/22 11:16 MRA OF THE INTRACRANIAL CIRCULATION WITHOUT CONTRAST CLINICAL HISTORY: Headache. COMPARISON STUDY: Head CT July 02, 2022. TECHNIQUE: Utilizing a 1.5 Victorina magnet and 3-D [id number] technique, unenhanced MRA of the intracranial circulation was obtained. FINDINGS: Note is made of a saccular 5 mm x 4 mm aneurysm which arises sup eriorly from the ophthalmic segment of the right internal carotid artery. This aneurysm is bilobed. No additional intracranial aneurysms are identified. 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 The bilateral M1, M2, A1 and A2 segment are patent. Posterior circulation is intact. There is no stenosis within the intracranial vessels. No dissection within the intracranial vessels is present. IMPRESSION: 1. 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 Nonemergent neurosurgical consultation is recommended. No additional intracranial aneurysms. 2. No central vessel occlusion. 3. Duplicated right A1 segment. ACT 112: Positive. There are findings on this exam that require communication between the performing entity and the patient following Patient Test Result Information Act ([place] Act 112) guidelines. Electronically signed by: Roslaino Gonzales M.D. 07/09/2022 1:30 PM Head/Brain Mag Res Venography 07/09/22 11:16 MR venography head wo con CLINICAL HISTORY: cortez referred by neuro . Cold days of headaches. No known injury or history of stroke TECHNIQUE: Multiplanar and multisequence MR images of the brain were obtained with MR venography protocol Comparison: Comparison is made to MRI brain 08/10/[address] brain 07/02/2022 FINDINGS: The white matter is unremarkable. The ventricular system is normal in appearance. There are no masses, mass effect, or midline shift. No abnormal enhancement is seen. The corpus callosum, pituitary gland, and cerebellar tonsils appear grossly unremarkable. Normal patency and flow is seen in the dural sinuses and visualized cerebral veins. The imaged portions of the paranasal sinuses, mastoid air cells, and or bits are unremarkable. IMPRESSION: No acute abnormalities, in particular no evidence of dural venous thrombus. ACT 112: Negative or not required by law. Electronically signed by: Oliver Cristobal M.D. 07/09/2022 1:29 PM KUB X-Ray 07/09/22 12:07 KUB CLINICAL HISTORY: MRI clearance. Assess for retained metallic leads in the abdomen. FINDINGS: An AP supine abdominal radiograph is obtained. No prior studies are available for comparison at the time of dictation. There is a nonobstructed abdominal bowel gas pattern. No evidence of intraperitoneal free air is seen on this supine image. There are no abnormal abdominal calcifications. There is no evidence of retained metallic foreign body. The bony structures appear intact. IMPRESSION: No retained metallic foreign body is identified. Electronically signed by: Shola Barrett M.D. 07/09/2022 12:35 PM Lumbar Puncture Fluoroscopy 07/09/22 15:51 FLUOROSCOPICALLY GUIDED LUMBAR PUNCTURE CLINICAL HISTORY: Headaches. Evaluate for meningitis. FLUOROSCOPY TIME: 0.3 minutes. NUMBER OF FLUOROSCOPIC IMAGES: 2 PROCEDURE: The procedure, risks and benefits were discussed with the patient including the risk of spinal headache, bleeding and infection. The patient agreed to the procedure and informed written consent was obtained. The procedure was performed by Dr. Gonzales following a timeout. The right L4-L5 interlaminar space was targeted. Skin overlying the space was prepped and draped in sterile fashion and local anesthesia was achieved with 1% lidocaine. Under intermittent fluoroscopic guidance, a 3 1/2 inch 22-gauge spinal needle was directed into the thecal sac. This immediately returned of cerebrospinal fluid. The CSF remained blood-tinged throughout the procedure. A total 8 cc of CSF was collected in 4 vials and sent to the laboratory for analysis as ordered. The needle was removed. The patient tolerated the procedure well and no immediate complications were evident. IMPRESSION: Successful fluoroscopically guided lumbar puncture with collection of 8 cc of blood-tinged CSF, as described above. Fluid sent to the laboratory for analysis as ordered. ACT 112: Negative or not required by law. Electronically signed by: Rosalino Gonzales M.D. 07/09/2022 5:48 PM [facility] Narrative 1100: The patient was evaluated in room C7. A complete history and physical exam was performed Cardiac monitoring: An order was placed for continuous cardiac monitoring. The monitor shows a rate of 100 with sinus rhythm EMR reviewed. This patient's third visit to the emergency department in the las t 11 days.Patient had blood work done on July 02 which was negative. Lyme screen negative on that date also. Patient had a CT of the head done which was negative.Patient was seen in the emergency department today by Dr. Jacinto neurology. He was referred to the emergency department today. The patient states he was sent here for an MRI from his "head to toe". I stated I would speak with Dr. Jacinto about this prior to ordering any MRIs. 1112: Spoke with Dr. Jacinto neurologist who referred the patient to the emergency department. He states that the patient has been having headaches for the last 12 days which are unexplained. He did state that he wanted to get MRIs of his head and thoracic and lumbar spine. He stated he was concerned that the patient could have a low pressure CSF leak. There is been no LP or recent trauma. We had a long discussion about which MRIs should be done emergently in the emergency department today. After long discussion with Dr. Jacinto, it was decided that we would order MRI of the brain with and without contrast, MRA of the brain, MRV of the brain in the emergency department as well as conduct labs. If these MRIs of the head were negative we would have the patient admitted to the hospital for further diagnostic MRI testing. Dr. Jacinto is also asking that the patient be evaluated by anesthesia for possible blood patch however given that the patient has not had any recent LP I doubt that anesthesia would conduct a blood patch on the patient emergently and thought that this would be better done on the inpatient setting after evaluation and further testing. The primary goal today in the emergency department would be to rule out any life-threatening intracranial emergency. I did discuss this with the patient and his who are at bedside and they are in agreement. 1554: Vital signs stable. Labs within normal limits. 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 Nonemergent neurosurgical consultation was recommended. MRI of the brain showed mild diffuse pachymeningeal enhancement seen throughout the brain. This can be seen in the setting of an infectious/inflammatory process or possibly intracranial hypotension. I discussed these findings with Dr. Jacinto and both he and I agree that we need to rule out meningitis. LP will be performed. I attempted lumbar puncture. 2-3 small drops of CSF were obtained however they came out very slow and eventually stopped coming out. Multiple other attempts were made however they were unsuccessful. I discussed the case with Dr. Gonzales radiology and requested that he attempt to do the procedure under fluoroscopy. Dr. Gonzales graciously said he would try to do the procedure. There is also concern that if the patient truly has intracranial hypotension that that could be the reason why not enough CSF was coming out. 1907: Vital signs stable. CSF is not concerning for meningitis as the patient's CSF bio fire was negative glucose was 54. The lumbar puncture was a traumatic tap given multiple attempts by me followed by attempts by radiology under fluoroscopy. We will proceed with the plan to obtain MRIs of his spine Dr. Penaloza is aware of this plan and states he will keep neurology on consult while the patient is admitted to the hospital. Impression & Plan Headache Discharge Plan Visit Data Chief Complaint: Headache Stated Complaint: SENT BY DR- SEVERE HEADACHES ED Provider: Tee Florentino Discharge Problem: Headache Patient Disposition: Being Evaluated by Hospitalist Forms Stand Alone Forms: My [facility] Prescriptions Prescriptions: No Action cyclobenzaprine 10 mg tablet 10 mg PO HS diclofenac sodium 75 mg tablet,delayed release (DR/EC) 75 mg PO BID Mucinex 1,200 mg tablet extended release 12hr 1,200 mg PO BID prednisone 20 mg tablet 20 mg PO DIRECTED [id number]-pqzgpxjiaahac-bkuo [Fioricet] 50-300-40 mg capsule 1 cap PO Q6H PRN (Reason: pain) Qty: 30 0RF Referrals Referrals: Topher Landa DO [Primary Care Provider] -
[2022-07-09 11:43] LABS: Basophils # (auto) 0.04 K/uL (0-0.2); Basophils % (auto) 0.4 %; Hematocrit (blood only) 47.7 % (40.1-51.0); Hemoglobin 16.8 g/dl (14.0-18.0); Immature Granulocytes # (auto) 0.03 K/uL (0.00-0.02); Immature Granulocytes % (auto) 0.3 %; Lymphocytes # (auto) 1.05 K/uL (1.2-3.4); Mean Corpuscular Hemoglobin 31.3 pg (25.0-34.0); Mean Corpuscular Hgb Conc 35.2 g/dL (32.0-36.0); Mean Corpuscular Volume 88.8 fL (80.0-100.0); Mean Platelet Volume 9.9 fL (9.4-12.4); Monocytes # (auto) 0.55 K/uL (0.24-0.82); Monocytes % (auto) 5.3 %; Platelet Count 261 K/uL (130-400); RDW Coefficient of Variation 11.9 % (11.5-14.5); RDW Standard Deviation 38.3 fL (36.4-46.3); Red Blood Count 5.37 M/uL (4.63-6.08); White Blood Count 10.47 K/ul (4.8-10.8)
[2022-07-09 11:58] LABS: INR 1.1 (0.9-1.1); Partial Thromboplastin Time 28.4 Seconds (21.0-31.0); Prothrombin Time 11.9 Seconds (9.0-12.0)
[2022-07-09 12:14] LABS: Albumin Globulin Ratio 1.4 (0.9-2); Albumin Level 4.9 gm/dl (3.4-5.0); BUN Creatinine Ratio 24.7 (10-20); Bilirubin,Total 0.8 mg/dl (0.2-1.0); Calcium 10.2 mg/dl (8.5-10.1); Creatinine Clr Calc Pharmacy 93.7 ml/min; Est GFR (African American) 119.4 ml/min; Globulin 3.6 gm/dl (2.5-4.0); Potassium 4.3 mmol/L (3.5-5.1); Total Protein 8.5 gm/dl (6.0-8.3)
--- NOTE | 2022-07-09 12:37 | XRay Report ---
KUB CLINICAL HISTORY: MRI clearance. Assess for retained metallic leads in the abdomen. FINDINGS: An AP supine abdominal radiograph is obtained. No prior studies are available for compariso n at the time of dictation. There is a nonobstructed abdominal bowel gas pattern. No evidence of intr aperitoneal free air is seen on this supine image. There are no abnormal abdominal calcifications. Th ere is no evidence of retained metallic foreign body. The bony structures appear intact. IMPRESSION: No retained metallic foreign body is identified. Electronically signed by: Shola Barrett M.D. 07/09/2022 12:35 PM
[2022-07-09] MEDS ORDERED: GADOBUTROL 65ML VIAL IV ONE (13:28)
--- NOTE | 2022-07-09 13:30 | Magnetic Resonance Report ---
MR venography head wo con CLINICAL HISTORY: cortez referred by neuro . Cold days of headaches. No known injury or history of stroke TECHNIQUE: Multiplanar and multisequence MR images of the brain were obtained with MR venography prot ocol Comparison: Comparison is made to MRI brain 08/10/[address] brain 07/02/2022 FINDINGS: The white matter is unremarkable. The ventricular system is normal in appearance. There are no masses , mass effect, or midline shift. No abnormal enhancement is seen. The corpus callosum, pituitary gla nd, and cerebellar tonsils appear grossly unremarkable. Normal patency and flow is seen in the dural sinuses and visualized cerebral veins. The imaged portio ns of the paranasal sinuses, mastoid air cells, and orbits are unremarkable. IMPRESSION: No acute abnormalities, in particular no evidence of dural venous thrombus. ACT 112: Negative or not required by law. Electronically signed by: Oliver Cristobal M.D. 07/09/2022 1:29 PM
--- NOTE | 2022-07-09 13:31 | Magnetic Resonance Report ---
MRA OF THE INTRACRANIAL CIRCULATION WITHOUT CONTRAST CLINICAL HISTORY: Headache. COMPARISON STUDY: Head CT July 02, 2022. TECHNIQUE: Utilizing a 1.5 Victorina magnet and 3-D pjlb-ty-lgcooz technique, unenhanced MRA of the intra cranial circulation was obtained. FINDINGS: Note is made of a saccular 5 mm x 4 mm aneurysm which arises superiorly from the ophthalmic segment of the right internal carotid artery. This aneurysm is bilobed. No additional intracranial a neurysms are identified. 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 The bilateral M1 , M2, A1 and A2 segment are patent. Posterior circulation is intact. There is no stenosis within the intracranial vessels. No dissection within the intracranial vessels is present. IMPRESSION: 1. Saccular bilobed 5 mm x 4 mm aneurysm arising from the ophthalmic segment of the right internal ca rotid artery. Nonemergent neurosurgical consultation is recommended. No additional intracranial aneur ysms. 2. No central vessel occlusion. 3. Duplicated right A1 segment. ACT 112: Positive. There are findings on this exam that require communication between the performing entity and the patient following Patient Test Result Information Act ([place] Act 112) guidelines. Electronically signed by: Rosalino Gonzales M.D. 07/09/2022 1:30 PM
--- NOTE | 2022-07-09 14:09 | Magnetic Resonance Report ---
Brain MRI WITH AND WITHOUT CONTRAST HISTORY: Headache. TECHNIQUE: Multiplanar multisequence MRI of the brain was performed both before and after the intrave nous administration of contrast. COMPARISON STUDY: Brain MRI 08/10/2017. FINDINGS: There are no areas of restricted diffusion to suggest acute infarction. The midline structu res are intact. The paranasal sinuses are clear. The mastoid air cells are clear. The ventricles and sulci are within normal limits for age. There is no mass, hematoma, midline shift. The major vascular flow-voids at the skull base are well maintained. No intracranial mass identified. There is mild dif fuse pachymeningeal enhancement. There are 2 punctate foci of T2 hyperintensity seen within the parat tim white matter of the left parietal lobe on coronal FLAIR image 18. These remain unchanged and are of doubtful clinical significance. IMPRESSION: 1. Mild diffuse pachymeningeal enhancement seen throughout the brain. This can be seen in the setting of an infectious/inflammatory process or possibly intracranial hypotension. 2. No acute infarct. ACT 112: Negative or not required by law. Electronically signed by: Praveen Joseph M.D. 07/09/2022 2:07 PM
[2022-07-09] MEDS ORDERED: MoRPHine SULFATE 4 MG/ML 1 ML CARP\\VIAL IV STA (14:59)
[2022-07-09] MEDS ORDERED: ONDANSETRON INJ 2 MG/ML 2 ML VIAL IV STA (14:59)
[2022-07-09] MEDS ORDERED: LIDO/EPINEPHRINE/SOD BICARB 20 ML VIAL INFIL ONE (14:59)
[2022-07-09] MEDS ORDERED: LORazepam 2 MG/2 ML SYR IV STA (14:59)
[2022-07-09 17:46] LABS: Total Protein CSF 127.6 mg/dl (15-45)
[2022-07-09 17:48] LABS: Appearance CSF Bloody; CSF Count Tube # 3; CSF Xanthrochromic No xanthochromia; Color CSF Orange; Mononuclear WBC CSF 87.6 %; Polynuclear WBC CSF 12.4 %; Red Blood Cell CSF (A) 6000 /uL (0-); White Blood Cell CSF (A) 16 /uL (0-5)
--- NOTE | 2022-07-09 17:49 | Fluoroscopy Report ---
FLUOROSCOPICALLY GUIDED LUMBAR PUNCTURE CLINICAL HISTORY: Headaches. Evaluate for meningitis. FLUOROSCOPY TIME: 0.3 minutes. NUMBER OF FLUOROSCOPIC IMAGES: 2 PROCEDURE: The procedure, risks and benefits were discussed with the patient including the risk of s annie headache, bleeding and infection. The patient agreed to the procedure and informed written cons ent was obtained. The procedure was performed by Dr. Gonzales following a timeout. The right L4-L5 i nterlaminar space was targeted. Skin overlying the space was prepped and draped in sterile fashion an d local anesthesia was achieved with 1% lidocaine. Under intermittent fluoroscopic guidance, a 3 1/2 inch 22-gauge spinal needle was directed into the thecal sac. This immediately returned of cerebrospi nal fluid. The CSF remained blood-tinged throughout the procedure. A total 8 cc of CSF was collected in 4 vials and sent to the laboratory for analysis as ordered. The needle was removed. The patient to lerated the procedure well and no immediate complications were evident. IMPRESSION: Successful fluoroscopically guided lumbar puncture with collection of 8 cc of blood-tinge d CSF, as described above. Fluid sent to the laboratory for analysis as ordered. ACT 112: Negative or not required by law. Electronically signed by: Rosalino Gonzales M.D. 07/09/2022 5:48 PM
--- NOTE | 2022-07-09 18:33 | History & Physical Report ---
Date of Service July 09, 2022 Assessment & Plan (1) Headache: Plan: Unclear cause but agree with neurology appears to be significantly postural Acetaminophen as needed for pain relief Lumbar puncture with significant protein but given bloody tap I am unclear on t he significance of this Mildly elevated WBC in CSF not concerning given bloody tap, Biofire negative for infection. Symptoms are not suggestive of meningitis with no nuchal rigidity. MRI brain, MRA and MRV - saccular bilobed aneurysm from ophthalmic segment of right internal carotid not suspected to be contributory but can follow up non- emergently with neuro-surgery as outpatient. Plan for MRI cervical/thoracic and lumbar spine per neuro recommendations to assess for CSF leak - of note these will be done after his lumbar puncture. Consult neurology - discussed with Dr Jacinto on admission (2) Postural headache: Plan: As above (3) Urinary retention: Plan: Self cath per patient Plan VTE Prophylaxis - not recommended following LP and patient low risk Diet - regular Disposition - observation status to med/surg Admission and Anticipated Discharge Date Admission Date: July 10, 2022 History of Present Illness Chief Complaint: Headache Primary Care Provider: DO Ramesh Mckeon is a 37 year old male who presents to the ER on advice of his neurologist due to persistent ongoing headache. He reports a persistent postural headache since June 27. Prior to this he has only had 3 migraine type headaches but none in the last decade. Much improved on lying down compared to sitting up. Severity currently 1/10 on lying down in the ER after pain medication. However, severity 4/10 and getting worse the last couple of days even on lying down (previously would resolve on lying down). Pain is worse behind his nose and base of skull with a constant pressure. He denies any nasal congestion and not previously had sinus infections. Associated occasional vision blurring but non currently. Also associated neck stiffness for which he has tried exercises and cyclobenzaprine without relief. His headache started during a course of prednisone for left sided radicular pains. He stopped the prednisone taper when the headaches started due to also having associated nausea therefore has not been able to keep much down. He has noticed caffeine helps the headache. Due to the very postural nature of his headache there was some concern for CSF leak although the patient has not had a lumbar puncture prior to today. Therefore he was sent to the ER for ongoing workup and given the extent of workup required and needing to wait between contrast dosing it was recommend to observe the patient in hospital for ongoing workup. In the ER MRA and MRV Allergies Allergy/AdvReac Type Severity Reaction Status Date / Time No Known Allergies Allergy Unverified 07/09/22 08:57 Home Medications Medication Instructions Recorded Confirmed Type prednisone 20 mg tablet 20 mg PO DIRECTED 06/28/22 07/09/22 History xuecbnnitn-svjqfdsubofxa-hohlyenh 1 cap PO Q6H PRN pain #30 caps 07/02/22 07/09/22 Rx 50 mg-300 mg-40 mg capsule (Fioricet) cyclobenzaprine 10 mg tablet 10 mg PO HS 07/02/22 07/09/22 History diclofenac sodium 75 mg 75 mg PO BID 07/02/22 07/09/22 History tablet,delayed release guaifenesin 1,200 mg tablet, 1,200 mg PO BID 07/02/22 07/09/22 History extended release 12 hr (Mucinex) Past Med/Surg History Medical History Migraine headache Urinary retention Surgical History History of implanted electronic device URINARY DEVICE DUE TO URINARY RETENTION/WAS REMOVED DUE TO NOT HELPING THE ISSUE Family History Mother Breast cancer Hypertension Cataracts, bilateral Father Hypertension Urinary retention Social History Smoking Status: Never smoker Second Hand Exposure: No; Hx Alcohol Use: Yes Alcohol type: beer Alcohol Intake Frequency: 4 or More x per/Week Hx Substance Use: No Preferred Language: Thai Communication Ability: Effective Visual Impairment: Limited Hearing Ability: Normal Accordion Tuner Required: No Beliefs That Will Affect Care: None marital status: Current Living Situation: Spouse and Family Current Living Situation Comment: and three kids current occupational status: employed Other Information That Helps Us Care for You: No Feels Safe at Home: Yes Safety Concerns: Feels Safe At This Time Childhood Exposure to Second-Hand Smoke: No caffeine: Yes Dental Care, Regularly: Yes Physical Activity Frequency: Does not Exercise Seatbelt Use: always Sunscreen Use: Yes Do you think of yourself as: straight/heterosexual Assistive Devices: None Review of Systems Review of Systems: All systems reviewed & are unremarkable except as noted in HPI & below Physical Exam Constitutional: WD/WN, vitals as above Eyes: PERRL, conjunctivae normal, anicteric sclerae EOM intact bilaterally ENMT: external ear and nose normal, oropharynx normal Neck: trachea midline, no thyromegaly Respiratory: normal respiratory effort, lungs clear to auscultation Cardiovascular: RRR, no murmur, no edema Gastrointestinal (Abdomen): normal bowel sounds, soft, nontender, no hepatosplenomegaly Musculoskeletal: no cyanosis or clubbing, extremities motor strength 5/5 Skin: no rashes, warm and dry Neurologic: moves all extremities, awake and + confused; no focal motor deficits Speech / Cognition: normal speech Motor/Sensory: no tremor and no pronator drift Cranial Nerves: EOM intact bilaterally, normal facial strength, tongue midline, normal gag reflex, able to rotate head bilaterally, able to elevate shoulders bilaterally and no nystagmus No nuchal rigidity Psychiatric: A+Ox3, euthymic affect Results & Data Results & Data ([facility]) Vital Signs (Past 12 Hours) Vital Signs Temp Pulse Pulse Resp BP BP Pulse Ox 07/09/22 17:00 84 18 118/64 98 07/09/22 11:44 91 H 20 105/66 99 07/09/22 10:27 36.8 C 107 H 18 116/80 98 O2 Del Method 07/09/22 17:00 07/09/22 11:44 07/09/22 10:27 Room Air Laboratory Results Abnormal lab results 07/09/22 07/09/22 07/09/22 Range/Units 11:34 11:34 17:00 Neut # (Auto) 8.80 H (1.4-6.5) K/uL Lymph # (Auto) 1.05 L (1.2-3.4) K/uL Immature Gran # (Auto) 0.03 H (0.00-0.02) K/uL Anion Gap 13 H (3-11) BUN/Creatinine Ratio 24.7 H (10-20) Calcium 10.2 H (8.5-10.1) mg/dl AST 11 L (13-39) U/L Total Protein 8.5 H (6.0-8.3) gm/dl CSF WBC (0-5) /uL CSF Total Protein 127.6 H (15-45) mg/dl 07/09/22 Range/Units 17:00 Neut # (Auto) (1.4-6.5) K/uL Lymph # (Auto) (1.2-3.4) K/uL Immature Gran # (Auto) (0.00-0.02) K/uL Anion Gap (3-11) BUN/Creatinine Ratio (10-20) Calcium (8.5-10.1) mg/dl AST (13-39) U/L Total Protein (6.0-8.3) gm/dl CSF WBC 16 H* (0-5) /uL CSF Total Protein (15-45) mg/dl Diagnostic Findings Brain MRI WITH AND WITHOUT CONTRAST HISTORY: Headache. TECHNIQUE: Multiplanar multisequence MRI of the brain was performed both before and after the intravenous administration of contrast. COMPARISON STUDY: Brain MRI 08/10/2017. FINDINGS: There are no areas of restricted diffusion to suggest acute infarction. The midline structures are intact. The paranasal sinuses are clear. The mastoid air cells are clear. The ventricles and sulci are within normal limits for age. There is no mass, hematoma, midline shift. The major vascular flow-voids at the skull base are well maintained. No intracranial mass identified. There is mild diffuse pachymeningeal enhancement. There are 2 punctate foci of T2 hyperintensity seen within the paratracheal white matter of the left parietal lobe on coronal FLAIR image 18. These remain unchanged and are of doubtful clinical significance. IMPRESSION: 1. Mild diffuse pachymeningeal enhancement seen throughout the brain. This can be seen in the setting of an infectious/inflammatory process or possibly intracranial hypotension. 2. No acute infarct. MRA OF THE INTRACRANIAL CIRCULATION WITHOUT CONTRAST CLINICAL HISTORY: Headache. COMPARISON STUDY: Head CT July 02, 2022. TECHNIQUE: Utilizing a 1.5 Victorina magnet and 3-D kuqk-lc-kcrkso technique, unenhanced MRA of the intracranial circulation was obtained. FINDINGS: Note is made of a saccular 5 mm x 4 mm aneurysm which arises superiorly from the ophthalmic segment of the right internal carotid artery. This aneurysm is bilobed. No additional intracranial aneurysms are identified. 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 The bilateral M1, M2, A1 and A2 segment are patent. Posterior circulation is intact. There is no stenosis within the intracranial vessels. No dissection within the intracranial vessels is present. IMPRESSION: 1. 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 Nonemergent neurosurgical consultation is recommended. No additional intracranial aneurysms. 2. No central vessel occlusion. 3. Duplicated right A1 segment. MR venography head wo con CLINICAL HISTORY: cortez referred by neuro . Cold days of headaches. No known injury or history of stroke TECHNIQUE: Multiplanar and multisequence MR images of the brain were obtained with MR venography protocol Comparison: Comparison is made to MRI brain 08/10/[address] brain 07/02/2022 FINDINGS: The white matter is unremarkable. The ventricular system is normal in appearance. There are no masses, mass effect, or midline shift. No abnormal enhancement is seen. The corpus callosum, pituitary gland, and cerebellar tonsils appear grossly unremarkable. Normal patency and flow is seen in the dural sinuses and visualized cerebral veins. The imaged portions of the paranasal sinuses, mastoid air cells, and orbits are unremarkable. IMPRESSION: No acute abnormalities, in particular no evidence of dural venous thrombus. Medications Administered ER Medications Given: Diphenhydramine 25mg IV NSS 1L bolus Metoclopramide 5mg IV Morphine 4mg IV Lorazepam 1mg IV Ondansetron 4mg IV Code Status & VTE Plan Code Status Full VTE Prophylaxis Plan VTE Prophylaxis will be ordered: No PG Care Time/CCT Total # of Minutes Spent Total Time Spent with Patient: Total time spent is greater than 50% in coordination of care (as documented) at patient's floor/unit and/or counseling patient: Coding Level of Care Code INT OBSERVATION CARE 70M LVL 3 Diagnoses Headache R51.9 Headache chronicity pattern: unspecified pattern Headache type: unspecified Intractability: intractable Postural headache R51.0 Urinary retention R33.9 (1) Headache Headache chronicity pattern: unspecified pattern Headache type: unspecified Intractability: intractable Qualified Code(s): R51.9 - Headache, unspecified
[2022-07-09 18:39] LABS: Cryptococcus neoformans/ga PCR Not Detected (NotDetected); Cytomegalovirus PCR Not Detected (NotDetected); Enterovirus PCR Not Detected (NotDetected); Escherichia coli K1 PCR Not Detected (NotDetected); Haemophilius influenzae PCR Not Detected (NotDetected); Herpes Simplex Virus 1 PCR Not Detected (NotDetected); Herpes Simplex Virus 2 PCR Not Detected (NotDetected); Human Herpes Virus 6 PCR Not Detected (NotDetected); Human Parechovirus PCR Not Detected (NotDetected); Listeria monocytogenes PCR Not Detected (NotDetected); Neisseria meningitidis PCR Not Detected (NotDetected); Streptococcus agalactiae PCR Not Detected (NotDetected); Streptococcus pneumoniae PCR Not Detected (NotDetected); Varicella Zoster Virus PCR Not Detected (NotDetected)
[2022-07-09] MEDS ORDERED: ACETAMINOPHEN 325 MG TAB PO PRN (21:21)
[2022-07-09] MEDS ORDERED: FLUARIX QUADRIVALENT 0.5 ML SYR IM ONE (21:46)
[2022-07-10] MEDS ORDERED: GADOBUTROL 65ML VIAL IV ONE (02:10)
--- NOTE | 2022-07-10 09:01 | Neurology Consultation ---
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 He has no history of spinal tap or other procedure so this is likely spontaneous. In addition, as lumbar puncture shows elevated white cells and a significantly elevated protein which could imply an infectious process. Viral meningitis could do this entire Radiographic picture. however, a viral meningitis headache will not go away with leg down flat as a spontaneous CSF leak clinical picture would. Other infectious etiologies are being ruled out He is neurologic examination is unremarkable with no focal findings, meningeal signs, or encephalopathy. Interestingly his meninges enhance throughout his entire neuraxis ( all MRIs). There were no defects or obvious sites of CSF leak. He does not have CSF leakage through his nose either. The patient has incidental distal right internal carotid artery aneurysm ( 5 x 4 mm). He has a history of migraine headaches in the past. He has urinary retention of uncertain etiology and no other neurologic issues that could be found. Recommendations: 1. Continue bed rest, fluids, and increased caffeine intake 2. A non targeted epidural blood patch could be performed by anesthesia (Lumbar spine) but no specific site of leaking has been found (and did just have a spinal tap). 3. We will follow. Overall, I spent a total of 120 minutes with this case including review of records, review of MRI films with Radiology, direct evaluation the patient at bedside, and discussion of the case with the patient at bedside and Dr. actually include differential diagnosis and treatment options. History of Present Illness Reason for Consultation: Patient is a 37-year-old, who I was asked to see at the request of Dr. Penaloza, for neurologic consultation regarding unusual headaches. Requesting Physician: Dr.- Penaloza Attending Physician: Adria Penaloza MD History of Present Illness this patient started having migraine headaches in his middle school years throughout most of his teen years. This persisted into his 20s but he has not really had any migraines over the last 10 years. Migraines consist of a visual aura followed by a pounding headache with nausea, vomiting, photophobia, and phonophobia. Sleep would help and they would only last a day or less. Patient has a history of urinary retention of uncertain etiology. He did see Dr. Jacinto in June of [address] Jacinto did not find any abnormalities on neurologic examination although there was a concern about conus medullaris syndrome. MRI of the lumbar, thoracic, and cervical spines were unremarkable except for some minor disc bulges at C6-7. There were some minor degenerative changes in lumbar spine. The cord was normal. MRI of the brain showed 2 tiny foci of white matter change in the left periventricular head region of a nonspecific nature. He was not seen in follow up with Dr. Jacinto after this. He does self catheterization his urinary retention problem as no other more specific etiology. Bladder stimulation did not help. This patient has no history head trauma concussion recent falling or trauma, significant illness or other issues. He was on no regular medication About 2-3 weeks ago patient started having some low back pain and radicular down the back of the right leg. Primary care gave him a prednisone which did help very much. . Starting on June 27, he awoke with a generalized significant headache of a pressure in nature without aura. This headache was worse when he was standing up markedly improved with lying. Lsog-tun-ffbzmog medications were minimal. He went to the emergency room June 28 and was evaluated given fluids and a cocktail of Benadryl, Compazine, and Toradol. This made a little bit of improvement. Headache persisted over the next several days any went to the emergency room July 02. CT scan of the head was unremarkable as were labs including CBC, ESR, Chem profile, and Lyme antibody titers. Because of persistent headache he saw Dr. Jacinto July 09. Over the last week his headache has been worse and it is been present laying down his much is standing up. He has no numbness or tingling in his limbs, weakness ( except for generalized fatigue) speech, vision, or memory problems, but he does have a "ho arse voice". Headache is a constant pressure in his neck is sore. It hurts to move his neck at times. It is the middle of his head and behind his eyes and occiput. Tywc-sjx-ykcazxy medications are of little help. Here 7 is of some help. He was sent to the emergency room July 09. Blood pressure was 116/80, pulse 107 and regular. Temperature was 36.8, respiratory rate 18, and O2 satu ration 98%. Neurologic examination was normal in the emergency room. CBC and Chem profile were largely unremarkable. LP was performed and showed a bloody appearance with no xanthochromia. Opening pressure was not recorded. There were 16 white cells, mostly monos, and a total protein was elevated at 127.6. Biofire was completely unremarkable. Lyme studies are pending. MRI of the brain showed no acute problems and unchanging the 2 tiny white matter spots. Meninges enhanced with contrast diffusely. MRIs of the cervical, thoracic, and lumbar spine had meningeal enhancement diffusely with no other specific abnormalities although there was some disc bulge at C6-7 as before. No other new structural abnormalities were noted on these MRIs and I have reviewed all of these with Dr. Joseph, radiology. MRA of the tang[place] of [place] shows a small right internal carotid artery distally ( 5 mm x 4 mm). There were no vessel stenoses or other anomalies. MRV of the head was unremarkable. This morning the patient's headache is resolved essentially laying down flat. It returns within 30 seconds or so after he stands. Allergies Allergy/AdvReac Type Severity Reaction Status Date / Time No Known Allergies Allergy Unverified 07/09/22 08:57 Home Medications Medication Instructions Recorded Confirmed Type prednisone 20 mg tablet 20 mg PO DIRECTED 06/28/22 07/09/22 History jyefgyuodx-dwmkljmrjtsyn-gcytnrmd 1 cap PO Q6H PRN pain #30 caps 07/02/22 07/09/22 Rx 50 mg-300 mg-40 mg capsule (Fioricet) cyclobenzaprine 10 mg tablet 10 mg PO HS 07/02/22 07/09/22 History diclofenac sodium 75 mg 75 mg PO BID 07/02/22 07/09/22 History tablet,delayed release guaifenesin 1,200 mg tablet, 1,200 mg PO BID 07/02/22 07/09/22 History extended release 12 hr (Mucinex) Patient History Medical History Migraine headache Urinary retention Surgical History History of implanted electronic device URINARY DEVICE DUE TO URINARY RETENTION/WAS REMOVED DUE TO NOT HELPING THE ISSUE Family History Mother Breast cancer Hypertension Cataracts, bilateral Father Hypertension Urinary retention Social History Smoking Status: Never smoker Second Hand Exposure: No; Hx Alcohol Use: Yes Alcohol type: beer Alcohol Intake Frequency: 4 or More x per/Week Hx Substance Use: No Preferred Language: [place] Communication Ability: Effective Visual Impairment: Limited Hearing Ability: Normal Concaver Required: No Beliefs That Will Affect Care: None marital status: Current Living Situation: Spouse and Family Current Living Situation Comment: and three kids current occupational status: employed Other Information That Helps Us Care for You: No Feels Safe at Home: Yes Safety Concerns: Feels Safe At This Time Childhood Exposure to Second-Hand Smoke: No caffeine: Yes Dental Care, Regularly: Yes Physical Activity Frequency: Does not Exercise Seatbelt Use: always Sunscreen Use: Yes Do you think of yourself as: straight/heterosexual Assistive Devices: None Review of Systems Constitutional: no fever, no fatigue and no weakness Eyes: no diplopia, no eye pain and no worsening vision Ear, Nose, Mouth, Throat: no ear pain, no tinnitus, no hearing loss, no dizziness, no snoring, no hoarseness and no dysphagia Respiratory: no cough and no dyspnea Cardiovascular: no chest pain, no palpitations and no lightheadedness Gastrointestinal: no abdominal pain, no nausea and no vomiting Musculoskeletal: no back pain, no neck pain, no radicular pain, no joint pain and no myalgia Integumentary: no rash and no lesions Neurologic: + generalized weakness and + headache(s); no gait abnormality, no localized weakness, no tingling, no numbness, no tremor(s), no abnormal movements, no abnormal speech, no confusion and no memory loss Psychiatric: no depression, no irritability, no anxiety, no difficulty concentrating, no confusion and no hallucinations Endocrine: no fatigue and no flushing Hematologic / Lymphatic: no easy bleeding and no easy bruising Allergy / Immunological: no urticaria and no problem reported Exam (Neuro) Physical Exam: The patient is left-handed. The patient is awake, alert, and attentive. Speech is normal without any aphasia or dysarthria. The patient can name objects, repeat phrases, and has normal spontaneous speech. Mentation and thought processes are intact, with orientation to person, place and time, and normal fund of knowledge. Attention and concentration are normal. Mood and affect are normal and appropriate. General appearance and grooming are normal. Short and long-term memory are intact. Pupils are 4 mm bilaterally and reactive to light. Extraocular eye muscles are intact without nystagmus. Visual acuity and visual hopkins seem normal grossly to confrontation. There are no deficits to sensation in the face in all 3 distributions of the fifth cranial nerve bilaterally. Corneal reflexes are positive bilaterally. Facial strength and symmetry was normal bilaterally. Hearing seems normal bilaterally. Palate moves well without asymmetry. There is normal sternocl eidomastoid and trapezius (shoulder shrug) strength bilaterally. Tongue is midline with good strength bilaterally. Neck has a full range of motion without discomfort. There are no cervical bruits bilaterally. There are no cranial or ocular bruits. Heart is without murmur. There is a regular rhythm and rate. Cervical, thoracic, and lumbar spine are nontender to palpation. Gait is narrow based, with good arm swing, turns, and stance. Balance is normal eyes open or closed. With outstretched arms there is no drift. There are no resting, postural, or action tremors. There is no ataxia with finger to nose testing. There is good facility in the hands. No other abnormal involuntary movements are noted. Motor strength is 5/5 diffusely in the arms bilaterally including deltoids, biceps, triceps, brachioradialis, wrist flexors and extensors, flaring machine operator, and intrinsic hand muscles. Motor strength is 5/5 diffusely in the legs bilaterally including hip flexors, quadriceps, hamstrings, gastrocnemius, tibialis anterior, tibialis posterior, and Peroneii muscles. Toe extensors are normal and there is good bulk in the extensor digitorum brevis muscles bilaterally. The limbs have good tone without rigidity or spasticity. There is no atrophy noted in the muscles. Muscle bulk is normal, there is no tenderness to palpation, no myotonia to percussion, and no fasciculations seen. Sensory examination is intact to touch and pin throughout all 4 limbs diffusely. Reflexes are 1/4 in the biceps, triceps, brachioradialis, and Achilles tendons bilaterally. Quadriceps reflexes are 2/4 bilaterally. There is no clonus bilaterally. Toes are downgoing with plantar stimulation bilaterally. Peripheral pulses are present and of normal quality distally in all 4 limbs. There is no peripheral edema noted in the limbs. 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
--- NOTE | 2022-07-10 09:06 | Magnetic Resonance Report ---
MRI OF THE CERVICAL SPINE WITH AND WITHOUT CONTRAST CLINICAL HISTORY: postural headache ?CSF leak, request by neuro COMPARISON: MRI of the cervical spine August 10, 2017. TECHNIQUE: Utilizing a 1.5 Victorina magnet and dedicated coil, multiplanar, multiecho imaging of the ce rvical spine was performed before and after intravenous administration of 6 of Gadavist. FINDINGS: Alignment of the cervical spine is anatomic. Note is made of mild increased T2 signal along the super ior endplate of C7. This is new since MRI of August 10, 2017. There is no significant loss of verteb ral body height. No additional sites of marrow edema are present. Cervical cord signal and caliber ar e normal. 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 Note is made of d iffuse apparent dural thickening and enhancement shown best on these postcontrast sequences. This is new since previous MRI. This extends into the thoracic canal. The MRI of the thoracic spine will be r eported separately. Apparent inward displacement of the thecal sac by dural thickening and possible t race subdural fluid is noted. Mild multilevel degenerative changes are noted. These are similar to pr evious MRI. There are several small disc bulges and protrusions. IMPRESSION: 1. Diffuse dural thickening and enhancement, a new finding since MRI of August 10, 2017. Associated apparent inward displacement of the thecal sac by dural thickening and possible trace subdural fluid. Although nonspecific, these findings can be seen in the setting of spontaneous hypotension due to un derlying CSF leak. An infectious process with epidural phlegmon or a post traumatic etiology are with in the differential but considered less likely. Correlation with clinical evidence for intracranial h ypotension is recommended. If indicated, short-term follow-up MRI of the cervical spine is recommende d. 2. No change in mild cerebellar tonsillar ectopia since previous MRI. 3. Mild marrow edema along the superior endplate of C7 without significant vertebral body height loss . This is nonspecific. ACT 112: Negative or not required by law. Electronically signed by: Rosalino Gonzales M.D. 07/10/2022 9:05 AM
--- NOTE | 2022-07-10 11:56 | Magnetic Resonance Report ---
THORACIC SPINE MRI WITH AND WITHOUT CONTRAST, LUMBAR SPINE MRI WITH AND WITHOUT INTRAVENOUS CONTRAST HISTORY: Abnormal brain MRI. postural headache ?CSF leak, request by neuro TECHNIQUE: Multiplanar multisequence MRI of the thoracic and lumbar spine was performed both before a nd after the intravenous administration of 6 cc of Gadavist contrast. COMPARISON: Brain MRI 07/09/2022. Thoracic and lumbar spine MRI 07/19/2017. FINDINGS: Please refer the same day cervical spine MRI for further evaluation. There is a 5 mm T2 hyperintense focus within the T10 vertebral body. This may represent an atypical hemangioma. No additional lesions identified thoracic spine. There is mild disc space narrowing and disc desiccation at T6-T7 and T7-T 8. However, there are no disc herniations. No fracture or subluxation within the thoracic or lumbar s pine. The conus terminus at the L1 level. The visualized spinal cord is normal in course, caliber, an d signal intensity. There is mild disc space narrowing and disc desiccation at L5-S1 with a small foc al central disc protrusion. However, no significant central canal or neural foraminal narrowing at th is level. No additional disc herniations identified within the lumbar spine. The cauda equina appear intact. There is diffuse abnormal dural thickening with increased T2 signal and diffuse enhancement. No definite epidural/subdural fluid collections identified. However, trace extradural fluid collectio ns would be difficult to exclude on this study given the extensive dural abnormality. Right lower lum bar paraspinal musculature soft tissue edema and enhancement is likely due to the recent lumbar punct ure site. This diffuse dural abnormality results in diffuse mild to moderate narrowing of the thecal sac without cord deformity. IMPRESSION: 1. Diffuse dural thickening and enhancement throughout the thoracic and lumbar spine resulting in mil d to moderate mass effect of the thecal sac. No definite epidural/subdural fluid collections identifi ed. However, trace extradural fluid would be difficult to exclude on this study given the extensive d ural abnormality. Although nonspecific, these findings can be seen in the setting of spontaneous intr acranial hypotension. An infectious or inflammatory process could also have a similar appearance in t he appropriate clinical setting. 2. The visualized spinal cord is normal in course, caliber, and signal intensity. 3. No fracture or subluxation within the thoracic or lumbar spine. ACT 112: Negative or not required by law. Electronically signed by: Praveen Joseph M.D. 07/10/2022 11:54 AM
[2022-07-10] MEDS ORDERED: LIDOCAINE VISCOUS 2% 15 ML UDC ONE (12:13)
--- NOTE | 2022-07-10 12:50 | Anesthesiology Progress Note ---
Date of Service July 10, 2022 Assessment & Plan (1) Headache: Present on Admission?: Yes Plan 1. Headache: Low utility in epidural blood patch given no trauma at onset of headache as well as Thoracic/Lumbar MRI revealed no obvious CSF leak. Educated patient on conservative measures including caffeine, IV fluids, NSAIDs, and acetaminophen. Sphenopalatine Ganglion block performed at bedside after verbal consent obtained. Timeout performed, long Qtips soaked with 4% viscous lidocaine inserted in bilateral nares and advanced within patient comfort limits, remained in place for 10 minutes and slowly removed, patient reported improvement in retro-orbital pain, however occipital pain remains. Admission and Anticipated Discharge Date Admission Date: July 09, 2022 Subjective Consulted by hospitalist team regarding persistent headache with postural nature. Patient states headache began 12-13 days ago without inciting incident. Rates pain at 8-9/10 at worst. Worse with standing up, improved with lying down. Spinal tap performed yesterday for evaluation, no change in headache post procedure. Patient denies having this headache in past. Caffeine has slightly helped. Patient anxious regarding potential diagnosis. Denies any significant weakness/numbness. Does complain of 8 pound weight loss with loss of apetite. Review of Systems Review of Systems: All systems reviewed & are unremarkable except as noted in HPI & below Constitutional: + weight loss headache Eyes: no blind spots and no diplopia Ear, Nose, Mouth, Throat: no tinnitus and no dizziness Physical Exam Vital Signs: Last Vital Signs Temp 98.1 F 07/10/22 07:55 Pulse 71 07/10/22 07:55 Resp 14 07/10/22 07:55 BP 101/60 07/10/22 07:55 Pulse Ox 98 07/10/22 07:55 O2 Del Method 07/10/22 07:55 Constitutional: well developed; not in distress Eyes: PERRL, conjunctivae normal, anicteric sclerae ENMT: external ear and nose normal, oropharynx normal Mouth: no dentition abnormality Neck: trachea midline, no thyromegaly normal visual inspection Respiratory: normal respiratory effort, lungs clear to auscultation normal respiratory effort Auscultation: lungs clear to auscultation bilaterally Cardiovascular: RRR, no murmur, no edema Rate/Rhythm: regular rate and regular rhythm Musculoskeletal: no cyanosis or clubbing, extremities motor strength 5/5 Skin: no rashes, warm and dry (1) Headache Headache chronicity pattern: unspecified pattern Headache type: unspecified Intractability: intractable Qualified Code(s): R51.9 - Headache, unspecified
[2022-07-10] MEDS ORDERED: CAFFEINE CITRATE 500 MG in SODIUM CHLORIDE 0.9% 1000ML 1,000 ML IV STA (16:12)
[2022-07-10] MEDS: PANTOprazole 40 MG TAB PO SCH (17:06)
[2022-07-10] MEDS: SODIUM CHLORIDE 0.9% 1000ML 1,000 ML IV SCH (19:07)
--- NOTE | 2022-07-10 23:21 | Hospitalist Progress Note ---
Date of Service July 10, 2022 Assessment & Plan (1) Headache: Plan: ongoing, but some improvement today. exact etiology uncertain. EXTENSIVE MR imaging shows meningeal enhancement throughout the brain and spinal cord. this is most suggestive of a CSF leak but the etiology of such is very uncertain. other possibility is that he has a viral meningitis causing his headache, symptoms, and MR findings. appreciate neuro consult. appreciate anesthesia consult. s/p sphenopalatine ganglion block with some improvement in frontal headache symptoms. for additional headache relief will give caffeine 500mg IV x 1. re-eval tomorrow. see #2, #3 below. (2) CSF leak: Plan: imaging highly suggestive of such. postural headache also suggestive of such. if truly present the leak would be considered spontaneous. he has had no recent spine surgery, craniolfacial surgery, epidural injection, etc. although he had LP yesterday this would not account for the extensive MR findings seen. anesthesia consulted - since we do not know where the leak is a blood patch to the lumbar spine likely would not be helpful. thus, bedrest, IV fluids, drink coffee, and give IV caffeine x 1. re-eval tomorrow. (3) Meningitis: Plan: ?? if truly present this is likely viral in etiology. CSF biofire negative. Lyme screen negative. Anaplasmosis screen negative. Sed rate <10 making vasculitis/autoimmune diseases unlikely. send CSF for West Nile Virus. Check anaplasmosis DNA. Check sed rate/crp again in am. Send ISRAEL. Will also check respiratory biofire - there is more testing for various viruses on this then the CSF biofire panel. 6yo son did have viral URI last week. symptomatic care. follow CSF bacterial cx but likely to remain negative. (4) Urinary retention: Plan: Self cath per patient h/o bladder stimulator device but it offered no benefit; thus, it was removed in 2018. (5) Right internal carotid artery aneurysm: Plan: incidental finding not playing any role in the above annual surveillance will be needed (6) H/O migraine: Plan: long-standing h/o migraines going back to young adulthood, but hasn't had migrai feroz in 10+ years. can't exclude a component of migraine h/a. caffeine will help if there is a migraine component. Plan VTE Prophylaxis - not recommended following LP and patient low risk Diet - regular change observation status to full admission due to status headache updated at bedside Admission and Anticipated Discharge Date Admission Date: July 10, 2022 Subjective patient and his report that their 6yo son had URI about 1-2 weeks ago patient himself denies recent nasal congestion/sore throat but did have hot/cold chills 1 or 2 nights about a week ago no vomiting or diarrhea no rashes no obvious tick bite, but they do have some property at their home and have noted numerous ticks in the past from the property anesthesia was consulted for consideration of blood patch they did not feel it would be helpful instead they offered him a sphenopalatine ganglion block - which he accepted this helped frontal headache, but his posterior occipital pain continues pain is not as severe today with standing in comparison to yesterday Review of Systems Review of Systems: gen - no fevers skin - no rash pulm - no cough cv - no orthopnea or cp GI - no diarrhea musculo - no myalgias Physical Exam Physical Exam: gen - thin, NAD, comfortable eyes - PERRL mouth - MMM, no lesions, no erythema neck - no lymph nodes palpated heart - RRR s1 s2 no murmur lungs - CTA b/l abd - soft, NT, ND, BS+ musculo - no joint effusions ext - no edema, pulses 2+ b/l neuro - strength 5/5 x 4 exts; no meningismus signs Results & Data Results & Data ([facility] [place]) Vital Signs (Past 12 Hours) Vital Signs Temp Pulse Pulse Resp BP Pulse Ox O2 Del Method 07/10/22 21:49 36.6 C 64 14 97/60 L 98 Room Air 07/10/22 14:47 36.7 C 87 14 106/63 97 Room Air Laboratory Results Laboratory Results - last 24 hr 07/09/22 07/10/22 10:17 10:28 CSF West Nile RNA Pending Anaplasma Smear See Comment Diagnostic Findings CSF culture negative PG Care Time/CCT Total # of Minutes Spent Total Time Spent with Patient: Total time spent is greater than 50% in coordination of care (as documented) at patient's floor/unit and/or counseling patient: Coding Level of Care Code 76061 Subseq Hosp Care Lvl 3 Diagnoses Headache R51.9 Headache chronicity pattern: unspecified pattern Headache type: unspecified Intractability: intractable CSF leak G96.00 Meningitis G03.9 Urinary retention R33.9 Right internal carotid artery aneurysm I67.1 H/O migraine Z86.69 (1) Headache Headache chronicity pattern: unspecified pattern Headache type: unspecified Intractability: intractable Qualified Code(s): R51.9 - Headache, unspecified
[2022-07-11] MEDS: SODIUM CHLORIDE 0.9% 1000ML 1,000 ML IV SCH ×2 (04:59→15:22)
[2022-07-11 07:47] LABS: Basophils # (auto) 0.05 K/uL (0-0.2); Eosinophils # (auto) 0.07 K/uL (0-0.50); Eosinophils % (auto) 1.4 %; Hematocrit (blood only) 41.3 % (40.1-51.0); Hemoglobin 14.3 g/dl (14.0-18.0); Immature Granulocytes # (auto) 0.01 K/uL (0.00-0.02); Immature Granulocytes % (auto) 0.2 %; Lymphocytes # (auto) 1.41 K/uL (1.2-3.4); Lymphocytes % (auto) 28.2 %; Mean Corpuscular Hgb Conc 34.6 g/dL (32.0-36.0); Mean Corpuscular Volume 89.6 fL (80.0-100.0); Mean Platelet Volume 9.9 fL (9.4-12.4); Monocytes # (auto) 0.56 K/uL (0.24-0.82); Monocytes % (auto) 11.2 %; Platelet Count 203 K/uL (130-400); RDW Coefficient of Variation 11.8 % (11.5-14.5); RDW Standard Deviation 38.3 fL (36.4-46.3); Red Blood Count 4.61 M/uL (4.63-6.08)
[2022-07-11 08:31] LABS: BUN Creatinine Ratio 14.6 (10-20); C Reactive Protein 0.75 mg/dl (0-0.5); Calcium 8.8 mg/dl (8.5-10.1); Creatinine Clr Calc Pharmacy 105.2 ml/min; Est GFR (African American) 129.1 ml/min; Est GFR (Non-African American) 111.4 ml/min; Potassium 3.7 mmol/L (3.5-5.1)
[2022-07-11] MEDS: PANTOprazole 40 MG TAB PO SCH (09:42)
[2022-07-11 10:18] LABS: Adenovirus PCR Not Detected (NotDetected); Bordetella parapertussis PCR Not Detected (NotDetected); Bordetella pertussis PCR Not Detected (NotDetected); Chlamydia pneumoniae PCR Not Detected (NotDetected); Coronavirus 229E PCR Not Detected (NotDetected); Coronavirus CoV-2 (COVID19)PCR Not Detected (NotDetected); Coronavirus HKU1 PCR Not Detected (NotDetected); Coronavirus NL63 PCR Not Detected (NotDetected); Coronavirus OC43PCR Not Detected (NotDetected); Human Metapneumovirus PCR Not Detected (NotDetected); Influenza A PCR Not Detected (NotDetected); Influenza B PCR Not Detected (NotDetected); Mycoplasma pneumoniae PCR Not Detected (NotDetected); Parainfluenza Virus 1 PCR Not Detected (NotDetected); Parainfluenza Virus 2 PCR Not Detected (NotDetected); Parainfluenza Virus 3 PCR Not Detected (NotDetected); Parainfluenza Virus 4 PCR Not Detected (NotDetected); Respiratory Syncytial VirusPCR Not Detected (NotDetected); Rhinovirus/Enterovirus PCR Not Detected (NotDetected)
--- NOTE | 2022-07-11 10:19 | Neurology Progress Note ---
Date of Service July 11, 2022 Assessment & Plan (1) Intracranial hypotension: (2) Pachymeningitis: (3) Postural headache: Plan 37-year-old male presenting with a 2-week history of persistent postural headache, mild diffuse pachymeningeal enhancement on brain MRI and diffuse dural thickening and enhancement throughout the thoracic and lumbar spine on MRI of the spine. No definite epidural/subdural fluid collections identified although trace epidural fluid difficult to exclude given extensive dural abnormality. Imaging could be consistent with either spontaneous intracranial hypotension versus an infectious or inflammatory process. CSF analysis revealed an elevated protein and was otherwise unremarkable including CSF meningoencephalitis PCR testing. Symptoms began 1 week after an episode of acute low back pain. He does have a focal disc protrusion at L5-S1. No other antecedent symptoms, no gastroenteritis or URI symptoms. No recent vaccinations. No symptoms that would suggest systemic illness. More likely than not, this patient has spontaneous intracranial hypotension due to an unidentified CSF leak. Per Up To Date: CSF leaks may be due to dural tear, rupture of a meningeal diverticulum, or development of a CSF fistula. Dural tears may occur spontaneously or after trivial trauma, often in the setting of degenerative disc disease, osseous spurs, or thoracic dorsal osteophytes. (This patient does have a disc protrusion at L5-S1 and did complain of significant low back pain/sciatica about 1 week before symptom onset.) Meningeal diverticulum may form spontaneously or after healing of a dural tear and are associated with connective tissue abnormalities. A CSF fistula is an abnormal communication to the vascular system that allows CSF to drain from the subarachnoid space directly into adjacent spinal epidural and paraspinal veins in the absence of a dural defect. CSF leaks are typically located in the spinal column, mostly thoracic or cervicothoracic junction, few leaks may occur at the skull base and may be associated with CSF otorrhea or rhinorrhea. Patient's MRI findings in the context of his history are most consistent with spontaneous intracranial hypotension. However, the source this patient suspected CSF leak was not identified. Therefore, if patient's postural headache persists, would need to consider further evaluation such as MR myelography, or possibly radioisotope cisternography. If these additional imaging modalities are needed going forward, would also likely need to recommend a formal neurosurgical evaluation for targeted leak repair. This patient does seem to be responding to conservative treatment. However, if his postural headache persists and worsens throughout the day, I would recommend contacting anesthesiology again to perform a lumbar epidural blood patch. As his symptoms have been present for 2 weeks and have been quite disabling to the point that he required [facility], after several emergency department visits earlier this week for treatment of his postural headache. Admission and Anticipated Discharge Date Admission Date: July 10, 2022 Subjective Follow-up for persistent headache The patient does report modest improvement in his headache this morning. He has been able to get up out of bed and remain upright for a few moments without experiencing significant headache, although he does report mild frontal pressure with prolonged upright position. He denies other neurologic symptoms such as vision loss, diplopia, dizziness, vertigo, dysarthria, focal weakness, or sensory loss. He denies significant neck stiffness. No fever or chills. No muscle aches or pains or other systemic symptoms. Chronic urinary retention unchanged with need for self-catheterization. Episode of acute low back pain about 3 weeks ago with subsequent resolution, again reviewed. No antecedent illness such as gastroenteritis or upper respiratory infection, no antecedent vaccination. Results of patient's extensive evaluation in the context of this hospitalization reviewed directly with the patient including results of imaging suggesting CSF hypotension versus diffuse nonspecific leptomeningeal enhancement, brain and spinal cord with evidence of mild to moderate mass-effect upon the thecal sac, but without definitive epidural or subdural fluid collections although trace fluid difficult to exclude given extensive dural abnormality. Also noted is a moderate sized disc protrusion at L5-S1, atypical hemangioma within the T10 vertebral body, mild disc space narrowing and desiccation at T6-7 and T7-8. Normal conus medullaris. Normal cauda equina. Diffuse pachymeningeal enhancement on brain MRI noted potentially consistent with intracranial hypotension or nonspecific inflammation. 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 No additional intracranial aneurysms. MRV of the brain negative for dural venous thrombosis. Review of Systems Constitutional: no fever and no chills Eyes: no blind spots, no diplopia and no eye pain Neurologic: + headache(s); no gait abnormality, no localized weakness and no loss of sensation Results & Data ([facility] Vital Signs (Past 12 Hours) Vital Signs Temp Pulse Resp BP Pulse Ox O2 Del Method 07/11/22 07:39 36.6 C 76 16 97/59 L 95 07/10/22 21:49 36.6 C 64 14 97/60 L 98 Room Air Laboratory Results WBC 5.00, hemoglobin 14.3, hematocrit 41.3, MCV 89.6, platelet count 203, sodium 138, potassium 3.7, BUN 12, creatinine 0.82, glucose 100, CRP 0.75 CSF analysis reviewed, bloody, orange, no xanthochromia, 16 WBC, 6000 RBC, protein 127.6, CSF meningoencephalitis bio fire panel negative. CSF Gram stain revealed rare mononucleated cells, no organisms, culture no growth Upper respiratory nasopharyngeal PCR testing pending. ISRAEL pending Exam (Neuro) Neurologic: Oriented to:: Person, Place and Time Memory: Short Term Intact and Remote Intact Attention: Span Intact and Concentration Intact Speech Fluency: negative Dysarthria or Dysfluency Fund of Knowledge: Current Events, Past History and Vocabulary Cranial Nerves: Normal II, III, IV, , V, VII, VIII, IX, X, XI and XII Motor Strength: Normal Lower Extremities and Normal Upper Extremities Muscle Bulk/Involuntary Movements: No Involuntary Movements Coordination: Normal Details: Patient sat up on the edge of the bed, was able to maintain this position for 3 minutes without emergence of significant headache although did report mild frontal head pressure. Had patient lie back down with resolution of symptom. 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
--- NOTE | 2022-07-11 22:07 | Hospitalist Progress Note ---
Date of Service July 11, 2022 Assessment & Plan (1) Headache: Plan: ongoing, but again mild improvement overnight with caffeine. [id number] the postural headache is still very much present with minimal activity. all clinical findings - particularly his extensive MR imaging - support a CSF leak as the cause of his refractory headache. EXTENSIVE MR imaging shows meningeal enhancement throughout the brain and spinal cord. this is most suggestive of a CSF leak. other possibility is that he has a viral meningitis causing his headache, symptoms, and MR findings. however, extensive w/u for infectious causes have been negative including BioFire respiratory panel today and BioFire CSF panel on hospital day #1. If CSF leak is present it is uncertain where the leak is. Further, this would be a spontaneous CSF leak as he has had no recent back surgery, trauma, etc. appreciate neuro consult. appreciate anesthesia consult. s/p sphenopalatine ganglion block with some improvement in frontal headache symptoms on 07/10. s/p caffeine 500mg IV x 1 on 07/10 CSF culture remains negative. CSF West Nile virus pending. Anaplasmosis DNA pending. CSF lyme DNA pending. I spoke with Dr Jacinto regarding next steps - blood patch advised - see #2 below. (2) CSF leak: Plan: imaging highly suggestive of such. postural headache also suggestive of such. if truly present the leak would be considered spontaneous. he has had no recent spine surgery, craniofacial surgery, epidural injection, etc. although he had LP the day of admission this would not account for the extensive MR findings seen. he has a small disc herniation on MRI of the l-spine at L5-S1. perhaps his CSF leak occurred at this level? I spoke with Dr Jacinto from neurology who recommends a blood patch in the event the CSF leak is from the lumbar spine region. I then spoke with Dr Ordonez from anesthesia who is agreeable to a blood patch. Plan - * npo after MN tonight for probable blood patch in the AM by anesthesia * cont IVF * cont bedrest / lay flat Of note - recent INR/PT and platelets all wnl. He is on no blood thinners or chemical DVT proph. (3) Meningitis: Plan: possible but unlikely. if truly present this is likely viral in etiology. CSF biofire negative. Lyme screen negative. Anaplasmosis screen negative. Sed rate <10 and CRP today very low making vasculitis/autoimmune diseases unlikely. Did check ISRAEL today for completeness sake, however. BioFire respiratory panel today fully negative. CSF culture pending but negative to date. CSF for West Nile Virus pending. Sent serum for anaplasmosis DNA today. CSF for Lyme DNA is pending. Cont symptomatic care. follow CSF bacterial cx but likely to remain negative. see #2 re: CSF leak. (4) Urinary retention: Plan: Self cath per patient. h/o bladder stimulator device but it offered no benefit; thus, it was removed in 2018. (5) Right internal carotid artery aneurysm: Plan: incidental finding not playing any role in the above annual surveillance will be needed for this (6) H/O migraine: Plan: long-standing h/o migraines going back to young adulthood, but hasn't had migra estela in 10+ years. can't exclude a component of migraine h/a but less likely. caffeine did help his overall headache, however. could consider IV depakote or IV steroids if blood patch tomorrow fails to improve his symptoms. Plan VTE Prophylaxis - chemical means not recommended following recent LP and due to upcoming blood patch procedure updated at bedside once again today total care time today about 40 minutes with multiple phone calls to consultants and complex care coordination Admission and Anticipated Discharge Date Admission Date: July 10, 2022 Subjective patient still with positional/postural headache he was using the bathroom earlier and developed severe pressure over the head upon standing/walking upon return to the bed the headache subsided much of the headache when he is at rest is posterior occipital region denies nausea; able to eat meals no fever he thinks the caffeine IV yesterday did help him feel better overall no new complaints at bedside Review of Systems Review of Systems: gen - no fevers or chills, good appetite HENT - no URI symptoms pulm - no cough, no dyspnea CV - no cp - no abd pain, nausea or emesis neuro - no new neuro symptoms Physical Exam Physical Exam: gen - thin, NAD, comfortable laying flat in bed, nontoxic eyes - PERRL mouth - MMM, no lesions, no erythema neck - no JVD heart - RRR s1 s2 no murmur lungs - CTA b/l abd - soft, NT, ND, BS+ ext - no edema, pulses 2+ b/l neuro - strength 5/5 x 4 exts Results & Data Results & Data ([facility]) Vital Signs (Past 12 Hours) Vital Signs Temp Pulse Pulse Resp BP BP Pulse Ox 07/11/22 21:49 36.9 C 64 16 96/62 L 97 07/11/22 15:31 36.6 C 72 16 110/63 98 O2 Del Method 07/11/22 21:49 Room Air 07/11/22 15:31 Laboratory Results Laboratory Results - last 24 hr 07/11/22 07/11/22 07/11/22 07:32 07:32 07:32 WBC 5.00 RBC 4.61 L Hgb 14.3 Hct 41.3 MCV 89.6 MCH 31.0 MCHC 34.6 RDW Std Deviation 38.3 RDW Coeff of Aurelia 11.8 Plt Count 203 MPV 9.9 Immature Gran % (Auto) 0.2 Neut % (Auto) 58.0 Lymph % (Auto) 28.2 Gove % (Auto) 11.2 Eos % (Auto) 1.4 Baso % (Auto) 1.0 Neut # (Auto) 2.90 Lymph # (Auto) 1.41 Gove # (Auto) 0.56 Eos # (Auto) 0.07 Baso # (Auto) 0.05 Immature Gran # (Auto) 0.01 Sodium 138 Potassium 3.7 Chloride 106 Carbon Dioxide 26 Anion Gap 6 BUN 12 Creatinine 0.82 Est Cr Clr Drug Dosing 105.2 Est GFR ( Amer) 129.1 Est GFR (Non-Af Amer) 111.4 BUN/Creatinine Ratio 14.6 Glucose 100 H Calcium 8.8 C-Reactive Protein 0.75 H ISRAEL Screen Pending Adenovirus (PCR) B. pertussis DNA (PCR) B.parapertussis DNA PCR C. pneumoniae DNA (PCR) Coronavirus OC43 (PCR) Coronavirus HKU1 (PCR) Coronavirus 229E (PCR) SARS-CoV-2 (PCR) Coronavirus NL63 (PCR) Human Metapneumovir PCR Influenza Type A (PCR) Influenza Type B (PCR) M. pneumoniae (PCR) Parainfluenza 1 (PCR) Parainfluenza 2 (PCR) Parainfluenza 3 (PCR) Parainfluenza 4 (PCR) RSV (PCR) Entero/Rhino (PCR) 07/11/22 09:10 WBC RBC Hgb Hct MCV MCH MCHC RDW Std Deviation RDW Coeff of Aurelia Plt Count MPV Immature Gran % (Auto) Neut % (Auto) Lymph % (Auto) Gove % (Auto) Eos % (Auto) Baso % (Auto) Neut # (Auto) Lymph # (Auto) Gove # (Auto) Eos # (Auto) Baso # (Auto) Immature Gran # (Auto) Sodium Potassium Chloride Carbon Dioxide Anion Gap BUN Creatinine Est Cr Clr Drug Dosing Est GFR ( Amer) Est GFR (Non-Af Amer) BUN/Creatinine Ratio Glucose Calcium C-Reactive Protein ISRAEL Screen Adenovirus (PCR) Not Detected B. pertussis DNA (PCR) Not Detected B.parapertussis DNA PCR Not Detected C. pneumoniae DNA (PCR) Not Detected Coronavirus OC43 (PCR) Not Detected Coronavirus HKU1 (PCR) Not Detected Coronavirus 229E (PCR) Not Detected SARS-CoV-2 (PCR) Not Detected Coronavirus NL63 (PCR) Not Detected Human Metapneumovir PCR Not Detected Influenza Type A (PCR) Not Detected Influenza Type B (PCR) Not Detected M. pneumoniae (PCR) Not Detected Parainfluenza 1 (PCR) Not Detected Parainfluenza 2 (PCR) Not Detected Parainfluenza 3 (PCR) Not Detected Parainfluenza 4 (PCR) Not Detected RSV (PCR) Not Detected Entero/Rhino (PCR) Not Detected Diagnostic Findings CSF culture negative to date PG Care Time/CCT Total # of Minutes Spent Total Time Spent with Patient: Total time spent is greater than 50% in coordination of care (as documented) at patient's floor/unit and/or counseling patient: Coding Level of Care Code 19048 Subseq Hosp Care Lvl 3 Diagnoses Headache R51.9 Headache chronicity pattern: unspecified pattern Headache type: unspecified Intractability: intractable CSF leak G96.00 Meningitis G03.9 Urinary retention R33.9 Right internal carotid artery aneurysm I67.1 H/O migraine Z86.69 (1) Headache Headache chronicity pattern: unspecified pattern Headache type: unspecified Intractability: intractable Qualified Code(s): R51.9 - Headache, unspecified
[2022-07-12] MEDS: SODIUM CHLORIDE 0.9% 1000ML 1,000 ML IV SCH ×2 (01:10→11:47)
[2022-07-12 08:02] LABS: BUN Creatinine Ratio 14.5 (10-20); Calcium 8.8 mg/dl (8.5-10.1); Creatinine Clr Calc Pharmacy 103.9 ml/min; Est GFR (African American) 128.5 ml/min; Est GFR (Non-African American) 110.8 ml/min
--- NOTE | 2022-07-12 08:49 | Anesthesiology Consultation ---
Date of Service July 12, 2022 Assessment & Plan Chart Review Chart Review: Acceptable Risk for Surgery and Patient NOT seen in Pre Admission Testing Consults Requested none ASA ASA2 Proposed Anesthesia Additional Comments: pt to have epidural blood patch for postural headache History Height/Weight Height: 5 ft 9 in Weight: 61.48 kg Allergies Allergy/AdvReac Type Severity Reaction Status Date / Time No Known Allergies Allergy Unverified 07/09/22 08:57 Medications Home Medications Medication Instructions Recorded Confirmed Last Taken prednisone 20 mg tablet 20 mg PO DIRECTED 06/28/22 07/09/22 Unknown cpxsmsdjbl-mcabdfbmelahr-jarydask 1 cap PO Q6H PRN pain #30 caps 07/02/22 07/09/22 Unknown 50 mg-300 mg-40 mg capsule (Fioricet) cyclobenzaprine 10 mg tablet 10 mg PO HS 07/02/22 07/09/22 Unknown diclofenac sodium 75 mg 75 mg PO BID 07/02/22 07/09/22 Unknown tablet,delayed release guaifenesin 1,200 mg tablet, 1,200 mg PO BID 07/02/22 07/09/22 Unknown extended release 12 hr (Mucinex) Active Medications Generic Name Dose Route Start Last Admin Trade Name Freq PRN Reason Stop Dose Admin Sodium Chloride 1,000 mls @ 100 mls/hr 07/10/22 18:12 07/12/22 01:10 Nss 1000ml IV 08/09/22 18:11 100 mls/hr .Q10H ALICIA Administration Pantoprazole Sodium 40 mg 07/10/22 16:15 07/11/22 09:42 Pantoprazole 40 Mg Tab PO 07/14/22 16:14 40 mg QAM ALICIA Administration NPO Date Last Intake of Fluids: 07/11/22 Time Last Intake of Fluids: 23:00 Date Last Intake of Solids: 07/11/22 Time Last Intake of Solids: 23:00 Past Medical History Medical History Migraine headache Urinary retention Exercise / Class Metabolic Activity II 4-5 Yardwork/Stairs/Walk up hill Past Family History Family History Mother Breast cancer Hypertension Cataracts, bilateral Father Hypertension Urinary retention Past Surgical History Surgical History History of implanted electronic device URINARY DEVICE DUE TO URINARY RETENTION/WAS REMOVED DUE TO NOT HELPING THE ISSUE Past Anesthesia History No Hx of Anesthesia Complications and No Family Hx of Anesthesia Complications History of PONV No Hx of PONV and No Hx of Motion Sickness Social History Smoking Status: Never smoker Hx Alcohol Use: Yes Alcohol type: beer alcohol intake frequency: a few times a week Hx Substance Use: No Physical Exam Vital Signs Last Vital Signs Temp 36.5 C 07/12/22 07:58 Pulse 75 07/12/22 07:58 Resp 16 07/12/22 07:58 BP 98/64 L 07/12/22 07:58 Pulse Ox 99 07/12/22 07:58 O2 Del Method 07/11/22 21:49 Testing Laboratory Results 07/11/22 07:32 07/12/22 07:12 PT 11.9 Seconds (9.0-12.0) 07/09/22 11:34 INR 1.1 (0.9-1.1) 07/09/22 11:34 APTT 28.4 Seconds (21.0-31.0) 07/09/22 11:34 07/09/22 17:00 Gram Stain - Final Cerebral Spinal Fluid CSF Culture - Final No growth Other Testing 07/09/2022-head MRA-saccular bilobed [id number] aneurysm from ophthalmic segment of MICHAEL
--- NOTE | 2022-07-12 08:58 | Neurology Progress Note ---
Date of Service July 12, 2022 Assessment & Plan (1) Intracranial hypotension: (2) Postural headache: (3) Right internal carotid artery aneurysm: Plan Persistent postural headache, more likely than not, related to spontaneous intracranial hypotension due to an unidentified CSF leak. Please see yesterday's neurology progress note for further details. Because patient remains symptomatic this morning, I agree with proceeding with epidural blood patch which has been tentatively arranged with anesthesiology to be performed today. Case discussed with Dr. North yesterday. However, if this procedure is ineffective, would continue with current supportive/conservative medical care. Would then need to consider further evaluation such as MR myelography or possibly radioisotope cisternography and possible neurosurgical evaluation for consideration of targeted leak repair versus ongoing conservative management. Spontaneous intracranial hypotension may resolve on its own, but timeframe for symptom resolution could be quite prolonged. 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 Nonurgent outpatient neurosurgical evaluation will be needed for this issue as well. Please see yesterday's neurology progress note for further details here as well. Admission and Anticipated Discharge Date Admission Date: July 10, 2022 Subjective Follow-up for headache Patient continues to complain of low to medium grade headache that occurs upon sitting up and with standing. His headache resolves with lying down flat. He denies other associated symptoms such as neck stiffness, fever, spinal pain, vision disturbance, weakness, or sensory loss. I had discussed his case yesterday with Dr. North and had recommended reconsulting anesthesiology for epidural blood patch given the likelihood that patient's headaches are due to spontaneous intracranial hypotension. Please see my clinic note from yesterday for further details. It looks like anesthesiology, Dr. Ordonez, is agreeable to performing an epidural blood patch this morning. Review of Systems Constitutional: no fever Eyes: no blind spots, no diplopia and no eye pain Genitourinary: + difficulty urinating (no change) Musculoskeletal: no back pain, no neck pain and no myalgia Neurologic: as per Subjective / HPI Results & Data ([facility]) Vital Signs (Past 12 Hours) Vital Signs Temp Pulse Resp BP Pulse Ox O2 Del Method 07/12/22 07:58 36.5 C 75 16 98/64 L 99 07/11/22 21:49 36.9 C 64 16 96/62 L 97 Room Air Laboratory Results Sodium 140, potassium 4.0, BUN 12, creatinine 0.83, glucose 103, calcium 8.8 Diagnostic Findings Please see previous note for description of patient's extensive MRI evaluation. Coding Level of Care Code 05827 Subseq Hosp Care Lvl 2 Diagnoses Intracranial hypotension G96.810 Postural headache R51.0 Right internal carotid artery aneurysm I67.1
--- NOTE | 2022-07-12 13:09 | Anesthesia Procedure Note ---
Anesthesia Procedure Note Epidural Blood Patch Procedure Note Vital Signs: BP-142/85;HR-85;RR-20;Temp-36.5;Spo2%-99 Date of procedure: 07/12/22 Consent: Risk / Benefits Reviewed With: PT / POA / Parent / Guardian, Accepts Plan, Informed Consent Obtained and All Questions Answered Risks include: Failure of technique, Back pain, Infection, Bleeding, Nerve injury and Dural puncture Monitors attached: Blood Pressure, EKG and Pulse Oximetry Time out completed: Yes Premedication: None Position: Sitting Surgical Prep: Hand hygeine: Soap and water and Alcohol based hand rub Equipment/Supplies: Cap, Mask, Sterile gown, Sterile gloves, Sterile drapes and Sterile procedures used Skin prep: Chloraprep, Betadine and Duraprep Local medication: 1% Lidocaine (ml) Venous access site: Left antecubital vein Site: Midline Attempts: 1 Procedure Summary: At 12:45, pt was placed sitting up;monitors applied;vital signs taken; 1250-L3-4 interspace ID'ed; preppedw/ duraprep x 2 + Betadine;draped ;1% lido local 3ml;using # 17 G Tuohy needle + LORTS, atraumatic,no blood or CSF or paresthesias; using sterile technique, 20 ml blood drawn from patient's left AC and injected via epidural needle into epidural space. performed w/o incident. Patient then placed supine x 30 minutes. Post-Procedure: Pt hemodynamically stable, Pt tolerates well and No complications
[2022-07-12] MEDS: PANTOprazole 40 MG TAB PO SCH (13:52)
--- NOTE | 2022-07-12 14:41 | Communication Note ---
Date of Service: July 12, 2022 Patient seen in his room after the procedure. Pt. asked seble scale of 1-10, w/ 1 being the least and 10 the worst, how his H/A was before the epidural blood patch and how it is after the blood patch. He said about an 8 before and about 2-3 after.he said it's very tolerable now. I reiterated that I may not remove thr H/A 100%, but 70-80% improvement is good. He concurred and is satisfied. This was conveyed to Dr Nation and, he will prepare Pt. for discharge.
--- NOTE | 2022-07-12 17:10 | Discharge Summary ---
Date of Service date of admission - July 09, 2022 date of discharge - July 12, 2022 Admission HPI Per Admitting Provider Ramesh Brito is a 37 year old male who presents to the ER on advice of his neurologist due to persistent ongoing headache. He reports a persistent postural headache since June 27. Prior to this he has only had 3 migraine type headaches but none in the last decade. Much improved on lying down compared to sitting up. Severity currently 1/10 on lying down in the ER after pain medication. However, severity 4/10 and getting worse the last couple of days even on lying down (previously would resolve on lying down). Pain is worse behind his nose and base of skull with a constant pressure. He denies any nasal congestion and not previously had sinus infections. Associated occasional vision blurring but non currently. Also associated neck stiffness for which he has tried exercises and cyclobenzaprine without relief. His headache started during a course of prednisone for left sided radicular pains. He stopped the prednisone taper when the headaches started due to also having associated nausea therefore has not been able to keep much down. He has noticed caffeine helps the headache. Due to the very postural nature of his headache there was some concern for CSF leak although the patient has not had a lumbar puncture prior to today. Therefore he was sent to the ER for ongoing workup and given the extent of workup required and needing to wait between contrast dosing it was recommend to observe the patient in hospital for ongoing workup. In the ER MRA and MRV Principal Diagnosis Spinal headache 2nd to CSF leak - s/p blood patch with improvement Discharge Exam gen - thin, NAD, comfortable laying flat in bed, nontoxic eyes - PERRL mouth - MMM, no lesions, no erythema neck - no JVD heart - RRR s1 s2 no murmur lungs - CTA b/l abd - soft, NT, ND, BS+ ext - no edema, pulses 2+ b/l neuro - strength 5/5 x 4 exts Discharge Data Allergies Allergy/AdvReac Type Severity Reaction Status Date / Time No Known Allergies Allergy Unverified 07/17/22 14:05 Consultations [facility] Neurology Anesthesiology Radiology (for fluoro-guided LP) Procedures Performed 1. Fluoro-guided LP by radiology 2. Sphenopalatine nerve block by anesthesiology 3. Blood patch procedure by anesthesiology Ordered Studies Brain MRI 07/09/22 11:16 Brain MRI WITH AND WITHOUT CONTRAST HISTORY: Headache. TECHNIQUE: Multiplanar multisequence MRI of the brain was performed both before and after the intravenous administration of contrast. COMPARISON STUDY: Brain MRI 08/10/2017. FINDINGS: There are no areas of restricted diffusion to suggest acute infarction. The midline structures are intact. The paranasal sinuses are clear. The mastoid air cells are clear. The ventricles and sulci are within normal limits for age. There is no mass, hematoma, midline shift. The major vascular flow-voids at the skull base are well maintained. No intracranial mass identified. There is mild diffuse pachymeningeal enhancement. There are 2 punctate foci of T2 hyperintensity seen within the paratracheal white matter of the left parietal lobe on coronal FLAIR image 18. These remain unchanged and are of doubtful clinical significance. IMPRESSION: 1. Mild diffuse pachymeningeal enhancement seen throughout the brain. This can be seen in the setting of an infectious/inflammatory process or possibly intracranial hypotension. 2. No acute infarct. ACT 112: Negative or not required by law. Electronically signed by: Praveen Joseph M.D. 07/09/2022 2:07 PM Head MRA 07/09/22 11:16 MRA OF THE INTRACRANIAL CIRCULATION WITHOUT CONTRAST CLINICAL HISTORY: Headache. COMPARISON STUDY: Head CT July 02, 2022. TECHNIQUE: Utilizing a 1.5 Victorina magnet and 3-D bfeu-ox-ydztaw technique, unenhanced MRA of the intracranial circulation was obtained. FINDINGS: Note is made of a saccular 5 mm x 4 mm aneurysm which arises superiorly from the ophthalmic segment of the right internal carotid artery. This aneurysm is bilobed. No additional intracranial aneurysms are identified. 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 The bilateral M1, M2, A1 and A2 segment are patent. Posterior circulation is intact. There is no stenosis within the intracranial vessels. No dissection within the intracranial vessels is present. IMPRESSION: 1. 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 Nonemergent neurosurgical consultation is recommended. No additional intracranial aneurysms. 2. No central vessel occlusion. 3. Duplicated right A1 segment. ACT 112: Positive. There are findings on this exam that require communication between the performing entity and the patient following Patient Test Result Information Act ([place] Act 112) guidelines. Electronically signed by: Rosalino Gonzales M.D. 07/09/2022 1:30 PM Head/Brain Mag Res Venography 07/09/22 11:16 MR venography head wo con CLINICAL HISTORY: cortez referred by neuro . Cold days of headaches. No known injury or history of stroke TECHNIQUE: Multiplanar and multisequence MR images of the brain were obtained with MR venography protocol Comparison: Comparison is made to MRI brain 08/10/[address] brain 07/02/2022 FINDINGS: The white matter is unremarkable. The ventricular system is normal in appearance. There are no masses, mass effect, or midline shift. No abnormal enhancement is seen. The corpus callosum, pituitary gland, and cerebellar tonsils appear grossly unremarkable. Normal patency and flow is seen in the dural sinuses and visualized cerebral veins. The imaged portions of the paranasal sinuses, mastoid air cells, and orbits are unremarkable. IMPRESSION: No acute abnormalities, in particular no evidence of dural venous thrombus. ACT 112: Negative or not required by law. Electronically signed by: Oliver Cristobal M.D. 07/09/2022 1:29 PM KUB X-Ray 07/09/22 12:07 KUB CLINICAL HISTORY: MRI clearance. Assess for retained metallic leads in the abdomen. FINDINGS: An AP supine abdominal radiograph is obtained. No prior studies are available for comparison at the time of dictation. There is a nonobstructed abdominal bowel gas pattern. No evidence of intraperitoneal free air is seen on this supine image. There are no abnormal abdominal calcifications. There is no evidence of retained metallic foreign body. The bony structures appear intact. IMPRESSION: No retained metallic foreign body is identified. Electronically signed by: Shola Barrett M.D. 07/09/2022 12:35 PM Lumbar Puncture Fluoroscopy 07/09/22 15:51 FLUOROSCOPICALLY GUIDED LUMBAR PUNCTURE CLINICAL HISTORY: Headaches. Evaluate for meningitis. FLUOROSCOPY TIME: 0.3 minutes. NUMBER OF FLUOROSCOPIC IMAGES: 2 PROCEDURE: The procedure, risks and benefits were discussed with the patient including the risk of spinal headache, bleeding and infection. The patient agreed to the procedure and informed written consent was obtained. The procedure was performed by Dr. Gonzales following a timeout. The right L4-L5 interlaminar space was targeted. Skin overlying the space was prepped and draped in sterile fashion and local anesthesia was achieved with 1% lidocaine. Under intermittent fluoroscopic guidance, a 3 1/2 inch 22-gauge spinal needle was directed into the thecal sac. This immediately returned of cerebrospinal fluid. The CSF remained blood-tinged throughout the procedure. A total 8 cc of CSF was collected in 4 vials and sent to the laboratory for analysis as ordered. The needle was removed. The patient tolerated the procedure well and no immediate complications were evident. IMPRESSION: Successful fluoroscopically guided lumbar puncture with collection of 8 cc of blood-tinged CSF, as described above. Fluid sent to the laboratory for analysis as ordered. ACT 112: Negative or not required by law. Electronically signed by: Rosalino Gonzales M.D. 07/09/2022 5:48 PM Cervical Spine MRI 07/10/22 00:40 MRI OF THE CERVICAL SPINE WITH AND WITHOUT CONTRAST CLINICAL HISTORY: postural headache ?CSF leak, request by neuro COMPARISON: MRI of the cervical spine August 10, 2017. TECHNIQUE: Utilizing a 1.5 Victorina magnet and dedicated coil, multiplanar, multiecho imaging of the cervical spine was performed before and after intravenous administration of 6 of Gadavist. FINDINGS: Alignment of the cervical spine is anatomic. Note is made of mild increased T2 signal along the superior endplate of C7. This is new since MRI of August 10, 2017. There is no significant loss of vertebral body height. No additional sites of marrow edema are present. Cervical cord signal and caliber are normal. 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 Note is made of diffuse apparent dural thickening and enhancement shown best on these postcontrast sequences. This is new since previous MRI. This extends into the thoracic canal. The MRI of the thoracic spine will be reported separately. Apparent inward displacement of the thecal sac by dural thickening and possible trace subdural fluid is noted. Mild multilevel degenerative changes are noted. These are similar to previous MRI. There are several small disc bulges and protrusions. IMPRESSION: 1. Diffuse dural thickening and enhancement, a new finding since MRI of August 10, 2017. Associated apparent inward displacement of the thecal sac by dural thickening and possible trace subdural fluid. Although nonspecific, these findings can be seen in the setting of spontaneous hypotension due to underlying CSF leak. An infectious process with epidural phlegmon or a post traumatic etiology are within the differential but considered less likely. Correlation with clinical evidence for intracranial hypotension is recommended. If indicated, short-term follow-up MRI of the cervical spine is recommended. 2. No change in mild cerebellar tonsillar ectopia since previous MRI. 3. Mild marrow edema along the superior endplate of C7 without significant vertebral body height loss. This is nonspecific. ACT 112: Negative or not required by law. Electronically signed by: Rosalino Gonzales M.D. 07/10/2022 9:05 AM Lumbar Spine MRI 07/10/22 00:41 THORACIC SPINE MRI WITH AND WITHOUT CONTRAST, LUMBAR SPINE MRI WITH AND WITHOUT INTRAVENOUS CONTRAST HISTORY: Abnormal brain MRI. postural headache ?CSF leak, request by neuro TECHNIQUE: Multiplanar multisequence MRI of the thoracic and lumbar spine was performed both before and after the intravenous administration of 6 cc of Gadavist contrast. COMPARISON: Brain MRI 07/09/2022. Thoracic and lumbar spine MRI 07/19/2017. FINDINGS: Please refer the same day cervical spine MRI for further evaluation. There is a 5 mm T2 hyperintense focus within the T10 vertebral body. This may represent an atypical hemangioma. No additional lesions identified thoracic spine. There is mild disc space narrowing and disc desiccation at T6-T7 and T7-T8. However, there are no disc herniations. No fracture or subluxation within the thoracic or lumbar spine. The conus terminus at the L1 level. The visualized spinal cord is normal in course, caliber, and signal intensity. There is mild disc space narrowing and disc desiccation at L5-S1 with a small focal central disc protrusion. However, no significant central canal or neural foraminal narrowing at this level. No additional disc herniations identified within the lumbar spine. The cauda equina appear intact. There is diffuse abnormal dural thickenin g with increased T2 signal and diffuse enhancement. No definite epidural/subdural fluid collections identified. However, trace extradural fluid collections would be difficult to exclude on this study given the extensive dural abnormality. Right lower lumbar paraspinal musculature soft tissue edema and enhancement is likely due to the recent lumbar puncture site. This diffuse dural abnormality results in diffuse mild to moderate narrowing of the thecal sac without cord deformity. IMPRESSION: 1. Diffuse dural thickening and enhancement throughout the thoracic and lumbar spine resulting in mild to moderate mass effect of the thecal sac. No definite epidural/subdural fluid collections identified. However, trace extradural fluid would be difficult to exclude on this study given the extensive dural abnormality. Although nonspecific, these findings can be seen in the setting of spontaneous intracranial hypotension. An infectious or inflammatory process could also have a similar appearance in the appropriate clinical setting. 2. The visualized spinal cord is normal in course, caliber, and signal intensity. 3. No fracture or subluxation within the thoracic or lumbar spine. ACT 112: Negative or not required by law. Electronically signed by: Praveen Joseph M.D. 07/10/2022 11:54 AM Thoracic Spine MRI 07/10/22 00:41 THORACIC SPINE MRI WITH AND WITHOUT CONTRAST, LUMBAR SPINE MRI WITH AND WITHOUT INTRAVENOUS CONTRAST HISTORY: Abnormal brain MRI. postural headache ?CSF leak, request by neuro TECHNIQUE: Multiplanar multisequence MRI of the thoracic and lumbar spine was performed both before and after the intravenous administration of 6 cc of Gadavist contrast. COMPARISON: Brain MRI 07/09/2022. Thoracic and lumbar spine MRI 07/19/2017. FINDINGS: Please refer the same day cervical spine MRI for further evaluation. There is a 5 mm T2 hyperintense focus within the T10 vertebral body. This may represent an atypical hemangioma. No additional lesions identified thoracic spine. There is mild disc space narrowing and disc desiccation at T6-T7 and T7-T8. However, there are no disc herniations. No fracture or subluxation within the thoracic or lumbar spine. The conus terminus at the L1 level. The visualized spinal cord is normal in course, caliber, and signal intensity. There is mild disc space narrowing and disc desiccation at L5-S1 with a small focal central disc protrusion. However, no significant central canal or neural foraminal narrowing at this level. No additional disc herniations identified within the lumbar spi ne. The cauda equina appear intact. There is diffuse abnormal dural thickening with increased T2 signal and diffuse enhancement. No definite epidural/subdural fluid collections identified. However, trace extradural fluid collections would be difficult to exclude on this study given the extensive dural abnormality. Right lower lumbar paraspinal musculature soft tissue edema and enhancement is likely due to the recent lumbar puncture site. This diffuse dural abnormality results in diffuse mild to moderate narrowing of the thecal sac without cord deformity. IMPRESSION: 1. Diffuse dural thickening and enhancement throughout the thoracic and lumbar spine resulting in mild to moderate mass effect of the thecal sac. No definite epidural/subdural fluid collections identified. However, trace extradural fluid would be difficult to exclude on this study given the extensive dural abnormality. Although nonspecific, these findings can be seen in the setting of spontaneous intracranial hypotension. An infectious or inflammatory process could also have a similar appearance in the appropriate clinical setting. 2. The visualized spinal cord is normal in course, caliber, and signal intensity . 3. No fracture or subluxation within the thoracic or lumbar spine. ACT 112: Negative or not required by law. Electronically signed by: Praveen Joseph M.D. 07/10/2022 11:54 AM Hospital Course (1) Headache: Patient presented with severe postural headache. He underwent a lumbar puncture upon ER presentation and had extensive imaging. LP showed 16 wbcs and high protein levels but the tap was a bloody tap. Despite these findings infectious meningitis was felt not to be the main culprit. CSF culture and CSF BioFire panels were negative. Respiratory BioFire panel was negative. Lyme testing was negative. Anaplamosis screen was negative. CSF Lyme DNA was negative. CSF West Nile test was negative. Serum ISRAEL was negative. EXTENSIVE MR imaging showed meningeal enhancement throughout the entire brain and spinal cord. This was most suggestive of a CSF leak. The exact cause and the exact location of the CSF leak was uncertain. If CSF leak was present it was a spontaneous CSF leak as he had had no recent back surgery, trauma, etc. He did have a small lumbar disc herniation on MRI lumbar spine which theoretically could have been the cause of his CSF leak. The patient was seen by [facility] Neurology as well as Anesthesia. He received a sphenopalatine ganglion block with some improvement in frontal headache symptoms on 07/10 but his postural headache continued. He received IV caffeine 500mg IV x 1 on 07/10. This, too, helped his frontal headache but did not resolve the postural headache. Finally, on the AM of 07/12/22, he underwent a lumbar blood patch procedure by anesthesia with >75% improvement in his postural headache. He was able to stand and walk following the blood patch - something he had not been able to do for 10+ days. He was released to home on 07/12 and will have neurology follow-up within a few days of discharge to ensure ongoing improvement/full resolution of his postural headache. (2) CSF leak: Extensive MR imaging highly suggestive of such. The postural nature of his headaches also highly suggestive of such. His CSF leak would have been considered spontaneous. He had no recent spine surgery, craniofacial surgery, epidural injection, etc. Although he had LP the day of admission this would not have accounted for the extensive MR findings seen, and his spinal headache symptoms had been present for many days prior to the LP. He had a small disc herniation on MRI of the l-spine at L5-S1. Perhaps his CSF leak occurred at this level? Again he underwent blood patching in the lumbar spine region on 07/12/22 with SIGNIFICANT improvement in his postural headache as previously noted above. (3) Meningitis: Initially a concern based on preliminary LP results but later felt to be highly unlikely. CSF culture negative. CSF BioFire panel negative. CSF Lyme DNA negative. CSF West Nile test negative. ISRAEL negative. (4) Urinary retention: h/o bladder stimulator device but it offered no benefit; thus, it was removed in 2018. (5) Right internal carotid artery aneurysm: incidental finding noted on imaging this admission. was not playing any role in his headache. routine surveillance by neurosurgery/neurovascular will be needed for this. patient is aware of the aneurysm. (6) H/O migraine: long-standing h/o migraines going back to young adulthood, but hadn't had migraines in 10+ years prior to his recent headache. can't exclude a component of migraine h/a but much less likely. IV caffeine did help his overall headache but did not resolve the postural portion of his headache. Total Time Total Time Spent Total Time Spent (In Minutes): 45 Discharge Plan Discharge Items Patient Disposition: Home - Self-Care Reason For Visit: PERSISTANT HEADACHE Discharge Diagnosis: 1. Persistent Headache likely due to "CSF Leak" - blood patch performed by anesthesia with improvement in headache; exact location of leak is uncertain 2. Right internal carotid artery aneurysm - follow-up needed Activity: As commented below Activity Comment: rest & light activities only until you have follow-up with neurology Lifting: No more than 10 pounds Bathing Comment: you can shower in 24 hours from the time of the blood patch Sexual Activity: Wait until after follow-up appointment Exercise/Sports: Wait until after follow-up appointment Driving/Machine Use: would recommend against driving until you see neurology Non-emergency contact: Primary Care Provider and Neurologist Call non-emergency contact if: you have any medication questions, your symptoms worsen, your pain is not controlled, your pain is worsening, your pain is unusual for you, your pain is concerning for you and you have a fever Follow-up/Referrals: Teja Jacinto MD [Physician] - 07/17/22 9:45 am ([address] Jacinto, Dr Romeo, or any provider at the neurology office ) Topher Landa DO [Primary Care Provider] - (1 week ) Diet: Regular Addtl Attending Provider Instructions: Mr Brito, Bulmaro were admitted to the hospital for a severe, ongoing, postural headache (headache that worsens with standing) of 2+ weeks duration. You underwent a series of MRI scans of the brain and spinal cord along with lumbar puncture. The MRI scans suggested that you had either an infection (meningitis) or "intracranial hypotension" due to a leakage of cerebrospinal fluid (CSF). The lumbar puncture was inconclusive about whether there might be meningitis. Despite multiple medications, a nerve block performed by anesthesia, IV caffeine, etc your postural headache continued. We became more concerned with time that the headache was indeed from a CSF leak. The exact location of the leak was uncertain, however. On 07/12/22 you had a "blood patch" procedure performed by anesthesia in your lumbar spine area. This procedure helped your headache tremendously. This would suggest that the CSF leak was coming from somewhere in the lower portion of your spine. We remain hopeful that your headache will continue to be controlled upon discharge. Incidentally we found an aneurysm of your right internal carotid artery. You will need follow-up with a neurovascular specialist for this. Recommendations - 1. No bathing or showering at this time. You can take a shower tomorrow afternoon/evening - about 24 hours past the time of your blood patch procedure. You can remove the dressing on your back tomorrow and place a new dressing there as necessary. The hole from the procedure will seal over the next 2-3 days 2. Please continue to rest upon discharge home. Light activities only. No heavy lifting over 10 pounds. No exercise, heavy yard work or heavy household tasks, etc. Walking as tolerated is fine. 3. Drink plenty of fluids including coffee/caffeinated beverages over the next 2-3 days. 4. if you have recurrent headache you can use the fioricet as needed. 5. I will call you if any blood or CSF test comes back abnormal this week. 6. Please avoid any motrin/ibuprofen/aspirin/alleve/naprosyn at this time. 7. If you do see the neurosurgeon at [facility] please bring the CD-ROM of your head imaging with you to any future appointment. Follow-up - see separate section Return to [facility] if - * you have fevers over 100 degrees * you have severe, recurrent, postural headache * you have any concerns about your lower back and the blood patch procedure site * any other concerns It was our pleasure to care for you! Please continue to feel better, Dr North Pending Studies at Discharge: Yes Studies:: CSF culture; CSF West Nile virus test; ISRAEL (a test for autoimmune disease); anaplasmosis test (a tick-borne infection) Stand-Alone Forms: My [facility], Smoking Cessation Medications and DC Order Prescriptions: Continued [id number] [Fioricet] 50-300-40 mg capsule 1 cap PO Q6H PRN (Reason: pain) Qty: 30 0RF Changed cyclobenzaprine 10 mg tablet 10 mg PO HS PRN (Reason: muscle pain/spasm) Qty: 1 0RF Discontinued diclofenac sodium 75 mg tablet,delayed release (DR/EC) 75 mg PO BID Mucinex 1,200 mg tablet extended release 12hr 1,200 mg PO BID prednisone 20 mg tablet 20 mg PO DIRECTED Discharge Orders: Discharge Order (Routine); Ordered 07/12/22 Ordered By: Adria North Admission Data Admit Date/Time: 07/10/22 19:49 Attending Provider: Adria North Admit Provider: Adria Penaloza Primary Care Provider: Topher Landa Other Providers: Adria Penaloza ; Teja Jacinto ; Chava Rodriguez Other Interventions: Discharge Summary Assessment (RN) Last Done: 07/12/22 17:31 Coding Level of Care Code D/C DAY MANAGEMENT >30 MINS Diagnoses Headache R51.9 Headache chronicity pattern: unspecified pattern Headache type: unspecified Intractability: intractable CSF leak G96.00 Meningitis G03.9 Urinary retention R33.9 Right internal carotid artery aneurysm I67.1 H/O migraine Z86.69
[2022-07-13 14:37] LABS: Anti Nuclear Antibody Screen NEGATIVE (NEGATIVE)
[2022-07-13 22:08] LABS: Lyme DNA PCR CSF or Synovial Not Detected (Not Detected); Lyme DNA Source CSF
[2022-07-15 20:32] LABS: Lyme IgG Band Pattern CSF DNR; Lyme IgG CSF NO BANDS DETECTED; Lyme IgM Band Pattern CSF DNR; Lyme IgM CSF NO BANDS DETECTED
== END 2022-07-12 18:43 | disposition home or self-care (01) | DRG 93 ==
LOC: 3W 09:53 → ED 09:53 → EDINP 09:53 → SUATTDRO 17:47 → 3W 20:44